=== PATIENT | female | born 1965 | race Caucasian/White ===

== ENCOUNTER 2017-01-06 08:33 | Inpatient (IN) | payer BC ==
[2016-12-08 09:51] VITALS: BMI 34.0
--- NOTE | 2016-12-08 10:21 | PAT Medication Instructions ---
Service Date Dec 08, 2016. Current Home Medication List Acetaminophen (Tylenol), 1 TAB PO Q4 PRN for Pain Calcium-Magnesium W/ Vitamin D (Citracal Calcium+D Slow R), 1 TAB PO BID Cholecalciferol (Vitamin D3), 2,000 INTER.UNIT PO QAM Cyanocobalamin (Vitamin B-12 Inj), 1 in EVERY THREE WEEKS Docusate Sodium (Docusate Sodium), 1 MG PO DAILY PRN for Constipation Duloxetine HCl (Cymbalta), 1 CAP PO QAM Ferrous Sulfate (Iron), 1 TAB PO BID Multivitamin (Multivitamin), 1 TAB PO Omeprazole (Prilosec), 20 MG PO QAM Senna (Senna Lax), Unknown Dose PO BID Thiamine Hcl (Vitamin B-1), 100 MG PO QAM Medication Instructions For Your Scheduled Surgery - Continue as directed: Cyanocobalamin (Vitamin B-12 Inj), 1 in EVERY THREE WEEKS - Hold the following medications the morning of surgery: Thiamine Hcl (Vitamin B-1), 100 MG PO QAM Cholecalciferol (Vitamin D3), 2,000 INTER.UNIT PO QAM Calcium-Magnesium W/ Vitamin D (Citracal Calcium+D Slow R), 1 TAB PO BID Senna (Senna Lax), Unknown Dose PO BID Ferrous Sulfate (Iron), 1 TAB PO BID Multivitamin (Multivitamin), 1 TAB PO Docusate Sodium (Docusate Sodium), 1 MG PO DAILY PRN for Constipation - Take the following medications the morning of surgery with a sip of water OTHERWISE NOTHING TO EAT OR DRINK AFTER MIDNIGHT: Duloxetine HCl (Cymbalta), 1 CAP PO QAM Omeprazole (Prilosec), 20 MG PO QAM Acetaminophen (Tylenol), 1 TAB PO Q4 PRN for Pain (may take up to 4 hours prior to surgery if needed) - Take the following medications as scheduled the night before surgery: Calcium-Magnesium W/ Vitamin D (Citracal Calcium+D Slow R), 1 TAB PO BID Senna (Senna Lax), Unknown Dose PO BID Ferrous Sulfate (Iron), 1 TAB PO BID Acetaminophen (Tylenol), 1 TAB PO Q4 PRN for Pain Docusate Sodium (Docusate Sodium), 1 MG PO DAILY PRN for Constipation If you have any questions please call us at [phone] (Peyton Unger PA-C) or [phone] or [phone]
--- NOTE | 2016-12-08 10:59 | DIAGNOSTIC IMAGING REPORT ---
TWO VIEW CHEST CLINICAL HISTORY: Preoperative examination. FINDINGS: PA and lateral chest radiographs are obtained. No prior studies are available for comparison at the time of dictation. The cardiomediastinal silhouette is unremarkable. The lungs and pleural spaces are clear. There is no pneumothorax. The bony thorax appears intact. Degenerative change and scoliosis are noted in the thoracic spine. IMPRESSION: No active disease in the chest. Electronically signed by: Holden Francisco M.D. 12/08/2016 10:57 AM Dictated Date/Time: 12/08/2016 10:57 AM
[2016-12-08 11:58] LABS: BASO % 0.3 %; BASO ABS # 0.02 K/uL (0-0.2); COMPLETE YES; EOS % 0.5 %; HEMATOCRIT 39.4 % (37-47); IG% 0.3 %; LYMPH % 22.3 %; LYMPH ABS # 1.69 K/uL (1.2-3.4); MEAN CELL VOLUME 89.7 fL (80-100); MEAN CORPUSCULAR HEMOGLOBIN 30.3 pg (25-34); MEAN CORPUSCULAR HGB CONC 33.8 g/dl (32-36); MONO % 3.4 %; NEUT % 73.2 %; PLATELET COUNT 188 K/uL (130-400); RED BLOOD COUNT 4.39 M/uL (4.2-5.4); WHITE BLOOD COUNT 7.59 K/uL (4.8-10.8)
[2016-12-08 12:09] LABS: PROTHROMBIN TIME (PATIENT) 10.4 SECONDS (9.0-12.0)
[2016-12-08 12:29] LABS: BUN/CREATININE RATIO 50.6 (10-20); CALCIUM 8.7 mg/dl (8.5-10.1); CREATININE 0.44 mg/dl (0.60-1.20); POTASSIUM 3.9 mmol/L (3.5-5.1)
[2016-12-08 12:39] LABS: URINE APPEARANCE CLEAR (CLEAR); URINE BILIRUBIN NEG (NEG); URINE COLOR YELLOW; URINE NITRITE NEG (NEG); URINE SPECIFIC GRAVITY 1.022 (1.000-1.030); UROBILINOGEN NEG (NEG); ZZUR CULT IF INDIC CLEAN CATCH NO
[2016-12-08 12:53] LABS: MANUAL MICROSCOPIC REQUIRED? NO; REVIEW REQ? NO
[2016-12-08 13:08] LABS: ESTIMATED AVERAGE GLUCOSE 105 mg/dl; HA1C FLAG Normal (Normal)
--- NOTE | 2017-01-05 09:01 | HISTORY & PHYSICAL EXAMINATION ---
DATE OF ADMISSION: 01/06/2017 CHIEF COMPLAINT: Left hip pain. HISTORY OF PRESENT ILLNESS: Yasmine is a 51-year-old female with a multiple-year history of pain in her left hip. The patient rates her pain a 10/10. She has pain with her daily activities. She has limited standing and walking tolerance. Pain is worse with weightbearing. The patient has had Tylenol, injections and physical therapy in the past without relief. She is unable to take anti-inflammatories due to gastric bypass. She has failed conservative treatment and is scheduled for left hip replacement. PAST MEDICAL HISTORY: Benign. She denies heart disease, diabetes or DVT. PAST SURGICAL HISTORY: Ovarian resection 1982, abdominoplasty in 2011, gastric bypass 2009, vein ligation in 2011. SOCIAL HISTORY: The patient denies alcohol or tobacco use. She lives in a single story home. She is and works at the [employer] in [facility]. FAMILY HISTORY: Negative for DVT. MEDICATIONS: Vitamin B12, slow release iron, B1, D3, multivitamin, Caltrate, Senna-Lax, Tylenol, Prilosec, Pat-D and Cymbalta. ALLERGIES: None. REVIEW OF SYSTEMS: See HPI. Ten other systems reviewed, all negative. PHYSICAL EXAMINATION: VITAL SIGNS: Height 5 foot 2 inches, weight 186 pounds, BMI is 34. GENERAL: This is a well-developed, well-nourished female who is alert and oriented x3. Mood and affect are appropriate. HEENT: Normocephalic, atraumatic. Mucous membranes are moist and intact. NECK: Supple without lymphadenopathy. HEART: Regular rate and rhythm without murmurs, rubs or gallops. LUNGS: Clear to auscultation without wheezes or rhonchi. ABDOMEN: Soft and nontender. Bowel sounds are equal and active. EXTREMITIES: No ecchymosis, redness or warmth. Thigh and calf are soft and nontender. Log roll of the hip reproduces pain in the groin. Range of motion is decreased. She is neurovascularly intact with +5/5 strength. She walks with an antalgic gait. X-RAY EXAMINATION: AP and lateral views show joint space narrowing and osteophyte formation. She has cystic formation in the left acetabulum. IMPRESSION: Degenerative joint disease, left hip. PLAN: The patient will be admitted for a left total hip arthroplasty. We will plan on aspirin for DVT prophylaxis. The patient's PCP is Dr. Lucio. She will have [facility] for home physical therapy.
[~2017-01-06] VITALS: Ht 157.5 cm; Wt 84.3 kg
[2017-01-06] VITALS (10 sets, daily range): BP systolic 116–146; BP diastolic 72–99; PULSE 69–89; TEMP 36.1–37.2; O2SAT 95–100; Ht 157.5 cm; Wt 84.3 kg
[~2017-01-06 08:33] MED LIST: ACETAMINOPHEN 500 MG TAB PO SCH; BUPIVACAINE 0.5 % 5 MG/1 ML PF 10ML VIAL ONE; CALC1TAB56 PO; CEFAZOLIN 2000 MG/60 ML D5W 60 ML IV SCH; CLC100 PO; CYAN3INJ; CeleBREX 200 MG CAP PO SCH; DULO-24 PO; FAMOTIDINE 20 MG TAB PO SCH; FERR18TA PO; GABAPENTIN 300 MG CAP PO SCH; LACTATED RINGER'S 1000ML 1,000 ML IV SCH; LACTATED RINGER'S 1000ML 500 ML IV ONE; LACTATED RINGER'S 1000ML IV SCH; METOCLOPRAMIDE HCL 10 MG TAB PO SCH; MULT-506 PO; OXYCODONE HCL 10 MG TABCR (OXYCONTIN) PO SCH; POLYMYXIN B SULFATE 100,000 UNITS in NSS 100ML IR SCH; PRLSR20 PO; ROPIVACAINE 5MG/ML 30 ML 150 MG, BUPIVACAINE/EPINEPHR 0.5% MPF 30 ML, KETOROLAC TROMETH... INFIL SCH; SNK PO; THIA100T13 PO; TYL325X PO; VANCOMYCIN INJ 400 MG in NSS 100ML IR SCH; VTMD1000 PO
[2017-01-06] MEDS ORDERED: MIDAZOLAM HCL 1 MG/ML 2ML VIAL ONE (10:46)
--- NOTE | 2017-01-06 10:54 | History & Physical Bridge Note ---
H&P Re-Evaluation Bridge Note: I have examined the patient, reviewed the History & Physical and in the interval since the performance of the History & Physical I have noted the following changes of clinical significance: No changes noted
[2017-01-06] MEDS ORDERED: ORTHO JOINT ANESTHETIC ONE (11:13)
[2017-01-06] MEDS ORDERED: POVIDONE-IODINE OP SOLN 30 ML BTL ONE (11:13)
[2017-01-06] MEDS ORDERED: BACITRACIN 50000 UNIT VIAL ONE (11:13)
[2017-01-06] MEDS ORDERED: FENTANYL CITRATE INJ 50 MCG/1 ML 2 ML VIAL IV PRN (11:15)
[2017-01-06] MEDS ORDERED: HYDROmorphone INJ 1 MG/ML SYR IV PRN (11:15)
[2017-01-06] MEDS ORDERED: ONDANSETRON INJ 2 MG/ML 2 ML VIAL IV PRN ×2 (11:15→13:15)
[2017-01-06] MEDS ORDERED: ATROPINE SULFATE 0.1 MG/ML 5ML SYR IV PRN (11:15)
[2017-01-06] MEDS ORDERED: MEPERIDINE HCL 25 MG/ML CARP IV PRN (11:15)
[2017-01-06] MEDS ORDERED: LABETALOL HCL IV 5 MG/ML 20ML IV PRN (11:15)
[2017-01-06] MEDS ORDERED: EpHEDrine SULFATE INJ 50 MG/ML AMP IV PRN (11:15)
[2017-01-06] MEDS ORDERED: FENTANYL CITRATE INJ 50 MCG/1 ML 2 ML VIAL ONE (11:52)
[2017-01-06] MEDS ORDERED: PHENYLEPHRINE 100MCG/ML 5ML SYR ONE (12:04)
[2017-01-06] MEDS ORDERED: ROCURONIUM BROMIDE 10 MG/ML 5 ML VIAL ONE (12:04)
[2017-01-06] MEDS ORDERED: EpHEDrine SULFATE 50MG/5ML SYR ONE (12:04)
[2017-01-06] MEDS ORDERED: PROPOFOL IV EMULSION 10 MG/ML 20 ML VIAL IV ONE (12:04)
[2017-01-06] MEDS ORDERED: ONDANSETRON INJ 2 MG/ML 2 ML VIAL ONE (12:04)
[2017-01-06] MEDS ORDERED: DEXAMETHASONE SOD INJ 4 MG/ML VIAL ONE (12:05)
[2017-01-06] MEDS ORDERED: EpHEDrine SULFATE INJ 50 MG/ML AMP ONE (12:11)
--- NOTE | 2017-01-06 13:10 | DIAGNOSTIC IMAGING REPORT ---
INTRAOPERATIVE RADIOGRAPH CLINICAL HISTORY: Left hip arthroplasty. Fluoroscopy time: 11 seconds. FINDINGS: A single spot fluoroscopic view of the left hip from an arthroplasty procedure is presented. A left hip arthroplasty is in near-anatomic alignment. There is no evidence of acute fracture on this single fluoroscopic view. IMPRESSION: Intraoperative image from a left hip further plasty procedure as above. Electronically signed by: Holden Francisco M.D. 01/06/2017 1:09 PM Dictated Date/Time: 01/06/2017 1:08 PM
--- NOTE | 2017-01-06 13:11 | [facility] Post Operative Brief Note ---
Immediate Operative Summary Operative Date Jan 06, 2017. Pre-Operative Diagnosis Degenerative Joint Disease Left Hip Post-Operative Diagnosis Degenerative Joint Disease Left Hip Procedure(s) Performed Left Total Hip Arthroplasty, Direct Anterior Approach--Uncemented Surgeon Dr. Brian Goncalves Echocardiograph Technician Surgeon(s) PAUL Potter Estimated Blood Loss 200ML Findings djd poor tissue quality Specimens A. Left Femoral Head Complication(s) None Disposition Recovery Room / PACU
[2017-01-06] MEDS ORDERED: SOD PHOSPHATE/SOD BIPHOSPHATE ENEMA 132 ML BTL PR PRN (13:15)
[2017-01-06] MEDS ORDERED: METOCLOPRAMIDE HCL INJ 5 MG/ML 2 ML VIAL IV PRN (13:15)
[2017-01-06] MEDS ORDERED: MoRPHine SULFATE 2 MG/ML CARP IV PRN (13:15)
[2017-01-06] MEDS ORDERED: ZOLPIDEM TARTRATE 5 MG TAB PO PRN (13:15)
[2017-01-06] MEDS ORDERED: ALUMINUM/MAGNESIUM/SIMETH (MAALOX MAX) 30 ML UDC PO PRN (13:15)
[2017-01-06] MEDS ORDERED: TRAMADOL HCL 50 MG TAB PO PRN (13:15)
[2017-01-06] MEDS ORDERED: MAGNESIUM HYDROXIDE SUSP 30 ML UDC PO PRN (13:15)
[2017-01-06] MEDS ORDERED: BISACODYL 10 MG SUPP PR PRN (13:15)
[2017-01-06] MEDS ORDERED: DiphenhydrAMINE HCL 50 MG/ML VIAL IV PRN (13:15)
--- NOTE | 2017-01-06 14:26 | DIAGNOSTIC IMAGING REPORT ---
AP PELVIS, CROSSTABLE LATERAL LEFT HIP History: Left total hip arthroplasty. Degenerative arthritis. Postop. FINDINGS: The patient is status post a left total hip arthroplasty. The hardware is intact. No fracture or dislocation. Surgical drains are in place. IMPRESSION: Left total hip arthroplasty. No evidence for hardware complication. Electronically signed by: Sal Chaparro M.D. 01/06/2017 2:24 PM Dictated Date/Time: 01/06/2017 2:24 PM
--- NOTE | 2017-01-06 14:55 | Anesthesiology Progress Note ---
Anesthesia Post Op Note Date & Time Jan 06, 2017 at 14:54 Vital Signs Pain Intensity: 0 Vital Signs Past 12 Hours Date Time Temp Pulse Resp B/P Pulse Ox O2 Delivery O2 Flow Rate FiO2 01/06/17 14:30 36.9 71 18 134/78 99 Nasal Cannula 2 01/06/17 14:20 77 21 132/73 98 Nasal Cannula 2 01/06/17 14:10 79 20 136/74 98 Nasal Cannula 2 01/06/17 14:00 88 18 146/84 100 Mask 10 01/06/17 13:50 75 16 159/87 100 Mask 10 01/06/17 13:40 36.6 73 20 172/96 100 Mask 10 01/06/17 09:08 36.1 70 20 146/99 96 Room Air Notes Mental Status: alert / awake / arousable, participated in evaluation Pt Amnestic to Procedure: Yes Nausea / Vomiting: adequately controlled Pain: adequately controlled Airway Patency, RR, SpO2: stable & adequate BP & HR: stable & adequate Hydration State: stable & adequate Neuraxial Anesthesia: was administered, sensory block is resolving Anesthetic Complications: no major complications apparent
[2017-01-06] MEDS ORDERED: PNEUMOCOCCAL ADMINISTRATION CHARGE ONE (16:15)
[2017-01-06] MEDS ORDERED: PNEUMOCOCCAL POLYSACCHARIDES 25 MCG/0.5 ML VIAL/SYR IM. ONE (16:15)
[2017-01-06] MEDS: D5W AND 1/2NSS + 20MEQ KCL 1,000 ML IV SCH (16:26)
--- NOTE | 2017-01-06 16:27 | OPERATIVE REPORT ---
DATE OF OPERATION: 01/06/2017 PREOPERATIVE DIAGNOSIS: Degenerative arthritis, left hip. POSTOPERATIVE DIAGNOSIS: Same. PROCEDURE: Left total hip replacement. SURGEON: Dr. Goncalves. WASHROOM ATTENDANT: PAUL Potter. ANESTHESIA: Spinal. BLOOD LOSS: 200 mL. REPLACEMENT FLUIDS: 1700 mL crystalloid. DRAINS: Hemovacs x1. CULTURES: None. COMPLICATIONS: None. COMPONENTS USED: [employer] hip system: Acetabulum size 50, femur size 4 high offset, femoral head minus 3 32 mm. NOTE: PAUL Potter was present and assisted throughout due to the complicated nature of this case. He helped with preparation and set up, first assisted throughout and personally closed the fascial, subcutaneous and skin layers and applied the postoperative dressing. DESCRIPTION: Following satisfactory spinal, the patient was supine. The left leg was placed in the traction device, the right leg in the well leg barajas. The left leg was prepared with ChloraPrep and draped sterilely. Following a surgical time-out, an anterior approach was performed. The patient could sense the necessary of skin incision and therefore this case was delayed while general anesthetic was completed. The approach was then completed in the interval between the sartorius and tensor muscles. The patient had had a previous gastric bypass surgery and also a pannus resection, this made scarring in the proximal region present and the interval was difficult to expose. Eventually, the interval was opened, the circumflex femoral vessels were identified and ligated and anterior capsulotomy was performed exposing the arthritic femoral neck and head. There was modest bleeding. The femoral neck and head were trimmed and removed. Acetabular self-retaining retractor was placed. Acetabular reaming was completed under fluoroscopic control and a 50 shell was impacted into an anatomic position and secured with a dome screw. Local anesthetic was placed and after irrigation, the polyethylene liner was placed. Attention was turned to the femur. The femur was prepared after finding the intramedullary canal up to a size 4. A trial reduction with a minus 3 high offset stem showed sabianism of leg lengths using fluoroscopic landmarks and good fit and fill of the proximal canal. The hip was dislocated. The trial component was removed. Local anesthetic was placed and after irrigation, the final implant was placed and the hip was reduced. Fluoroscopy confirmed similar position. A Betadine soak was performed. The muscles were infiltrated with local anesthetic. After 5 minutes, the Betadine was irrigated. The capsule was closed with 1-0 Vicryl interrupted. A drain was then placed. The fascia was closed with a running suture of #1 Vicryl, the subcutaneous tissues with 2-0 Vicryl and the skin with running subcuticular stitch of 3-0 V-Loc. Dermabond and a dry dressing were applied. The patient was returned to her bed in stable condition. I attest to the content of the Intraoperative Record and any orders documented therein. Any exceptio ns are noted below.
[2017-01-06] MEDS: KETOROLAC TROMETHAMINE 30 MG/ML VIAL IV. SCH ×2 (18:32→23:53)
[2017-01-06] MEDS ORDERED: TRANEXAMIC ACID INJ 1,000 MG in SODIUM CHLORIDE 0.9% 100ML 100 ML IV ONE (20:00)
[2017-01-06] MEDS ORDERED: CeleBREX 200 MG CAP PO SCH (21:00)
[2017-01-06] MEDS ORDERED: SENNA 8.6 MG TAB PO SCH (21:00)
[2017-01-06] MEDS: CEFAZOLIN IV 2,000 MG in DEXTROSE 5% 50ML 50 ML IV SCH (21:07)
[2017-01-06] MEDS: ASPIRIN 81 MG ECTAB PO SCH (21:07)
[2017-01-06] MEDS: ACETAMINOPHEN 500 MG TAB PO SCH (21:08)
[2017-01-06] MEDS: TRANEXAMIC ACID INJ 1,000 MG in SODIUM CHLORIDE 0.9% 100ML 100 ML IV SCH ×2 (22:49→23:03)
[2017-01-07] MEDS: D5W AND 1/2NSS + 20MEQ KCL 1,000 ML IV SCH ×2 (01:42→12:00)
[2017-01-07] MEDS: OXYCODONE HCL IR 5 MG TAB (IMMEDIATE RELEASE) PO PRN ×3 (01:45→12:58)
[2017-01-07] MEDS: CEFAZOLIN IV 2,000 MG in DEXTROSE 5% 50ML 50 ML IV SCH (04:00)
[2017-01-07] MEDS: ACETAMINOPHEN 500 MG TAB PO SCH ×2 (04:00→12:57)
[2017-01-07 04:40] VITALS: BP 107/69; PULSE 70; TEMP 36.4; O2SAT 98
[2017-01-07] MEDS: KETOROLAC TROMETHAMINE 30 MG/ML VIAL IV. SCH ×2 (06:01→12:00)
[2017-01-07 06:14] LABS: BASO % 0.1 %; BASO ABS # 0.01 K/uL (0-0.2); EOS % 0.1 %; IG% 0.3 %; LYMPH % 11.2 %; MEAN CELL VOLUME 89.4 fL (80-100); MEAN CORPUSCULAR HEMOGLOBIN 29.5 pg (25-34); MEAN PLATELET VOLUME 10.6 fL (7.4-10.4); MONO % 6.6 %; NEUT % 81.7 %; PLATELET COUNT 194 K/uL (130-400); RED BLOOD COUNT 3.02 M/uL (4.2-5.4)
[2017-01-07 06:43] LABS: COMPLETE YES
[2017-01-07 06:52] LABS: BUN/CREATININE RATIO 21.3 (10-20); CALCIUM 8.2 mg/dl (8.5-10.1); CREATININE 0.59 mg/dl (0.60-1.20); POTASSIUM 4.5 mmol/L (3.5-5.1)
[2017-01-07 07:59] VITALS: BP 133/84; PULSE 67; TEMP 36.4; O2SAT 97
[2017-01-07] MEDS ORDERED: RXC5 PO (08:12)
[2017-01-07] MEDS ORDERED: ASPEC81 PO (08:12)
[2017-01-07] MEDS ORDERED: ACET-1138 PO (08:12)
[2017-01-07] MEDS ORDERED: CLB200 PO (08:12)
[2017-01-07] MEDS ORDERED: SNK PO (08:12)
--- NOTE | 2017-01-07 08:16 | Orthopedic Progress Note ---
Orthopedic Progress Note Date of Service Jan 07, 2017. Subjective Post OP Day: 1 Reports: feeling well, Denies: SOB, complaints, light headedness, pain controlled w PO medications Objective calves soft nontender, N/V intact, hip located, dressing C/D/I, A&O x3, toes mobile, hemovac drainage (60 LAST SHIFT ) Date Time Temp Pulse Resp B/P Pulse Ox O2 Delivery O2 Flow Rate FiO2 01/07/17 07:59 36.4 67 16 133/84 97 Room Air 01/07/17 04:40 36.4 70 16 107/69 98 Room Air 01/06/17 23:30 Room Air 01/06/17 22:55 36.4 84 16 116/72 96 Room Air 01/06/17 19:49 133/78 01/06/17 19:19 36.7 79 18 120/87 97 Room Air 01/06/17 17:45 37.2 89 17 135/83 96 Room Air 01/06/17 16:45 36.4 81 18 127/89 95 Room Air 01/06/17 15:48 36.4 69 18 123/80 95 Room Air 01/06/17 15:19 36.4 76 16 129/83 100 Nasal Cannula 2.0 01/06/17 14:50 98 Nasal Cannula 2.0 01/06/17 14:45 98 Nasal Cannula 2.0 01/06/17 14:30 36.9 71 18 134/78 99 Nasal Cannula 2 01/06/17 14:20 77 21 132/73 98 Nasal Cannula 2 01/06/17 14:10 79 20 136/74 98 Nasal Cannula 2 01/06/17 14:00 88 18 146/84 100 Mask 10 01/06/17 13:50 75 16 159/87 100 Mask 10 01/06/17 13:40 36.6 73 20 172/96 100 Mask 10 01/06/17 09:08 36.1 70 20 146/99 96 Room Air Laboratory Results 24 Hours: Test 01/07/17 05:46 White Blood Count 11.60 K/uL Red Blood Count 3.02 M/uL Hemoglobin 8.9 g/dL Hematocrit 27.0 % Mean Corpuscular Volume 89.4 fL Mean Corpuscular Hemoglobin 29.5 pg Mean Corpuscular Hemoglobin Concent 33.0 g/dl Platelet Count 194 K/uL Mean Platelet Volume 10.6 fL Neutrophils (%) (Auto) 81.7 % Lymphocytes (%) (Auto) 11.2 % Monocytes (%) (Auto) 6.6 % Eosinophils (%) (Auto) 0.1 % Basophils (%) (Auto) 0.1 % Neutrophils # (Auto) 9.49 K/uL Lymphocytes # (Auto) 1.30 K/uL Monocytes # (Auto) 0.76 K/uL Eosinophils # (Auto) 0.01 K/uL Basophils # (Auto) 0.01 K/uL Assessment & Plan Assessment: POD 1 PAPO ANEMIA CHRONIC WITH ACUTE DUE TO SURGERY HX GASTRIC BYPASS Plan: HOME TODAY W [facility] HH ANEMIA COMPENSATED Inhouse Planning Pain Management: PO Tylenol, Oxy IR DVT Prophylaxis: TEDs, SCDs, ASA Discharge Planning Discharge Planning: home with home health Pain Management: PO Tylenol, Oxy IR DVT Prophylaxis: TEDs, ASA Therapy: Physical Therapy, Occupational Therapy
--- NOTE | 2017-01-07 08:20 | Discharge Instructions ---
Discharge Instructions Admission Reason for Admission: Left Hip Degenerative Arthritis Discharge Discharge Diagnosis / Problem: Left Hip Djd Discharge Goals Goal(s): Decrease discomfort, Improve function Activity Recommendations Activity Limitations: per Instructions/Follow-up section Weightbearing Status: Left weightbearing (as tolerated) . Instructions / Follow-Up Instructions / Follow-Up ACTIVITY RECOMMENDATIONS: SELF CARE INSTRUCTIONS AFTER TOTAL HIP REPLACEMENT : Direct Anterior Approach Until the incision and soft tissues around your hip have healed, there is a possibility that the hip prosthesis could dislocate. A. Hip flexion ( Up & Down out of chair or steps ) may be difficult. This is normal. B. Numbness in front of the thigh is also normal for a few weeks. C. Use hand rails when walking on stairs. D. Wear low heeled shoes with non-slip soles. E. Be sure that your floors are free of things that could trip you - throw rugs , electrical cords, small objects. Avoid wet and waxed floors, especially with crutches and canes. F. Try to walk several times a day with rest periods between. G. Continue with all the exercises taught to you in the hospital. Again, make walking a part of your daily routine. SPECIAL CARE INSTRUCTIONS: VERY IMPORTANT TO READ AND REVIEW A. You may still be at risk for phlebitis and blood clots. 1. Wear surgical stockings (ESTHER hose) for 2 weeks after surgery to improve circulation and reduce swelling. 2. Take Aspirin 81mg twice daily for 4 weeks or as directed by your doctor. This is your blood thinner. 3. High risk patients may be prescribed a stronger blood thinner if necessary. 4. If you are on Coumadin normally, your family doctor/vault custodian should monitor your blood work. Expect a phone call the day of or the day after bloodwork is drawn to adjust your dosage. B. You must take antibiotics before having dental work, bladder, bowel and other surgery. Your doctor will provide you with a permanent card to carry describing precautions. C. Call [facility] if you have a fever, redness or swelling around the incision, cloudy drainage from incision, or sudden increase in pain in your hip, not relieved by your regular pain medication. D. Please call the office at if you have any concerns or questions about your operation or recovery. * YOU MAY SHOWER, NO TUB BATHS UNTIL CLEARED BY YOUR DOCTOR. - Keep an extra close eye on the top portion of your incision. Be sure to keep clean & dry. * WEAR ESTHER HOSE 20 HOURS PER DAY FOR 2 WEEKS. * YOU MAY PROGRESS FROM A WALKER, TO A CANE, TO INDEPENDENT AT YOUR OWN PACE. * MOST PATIENTS WILL HAVE HOME NURSING FOR THERAPY. IF YOU DECIDE TO DO OUTPATIENT PHYSICAL THERAPY, PLEASE SCHEDULE THIS 3 TIMES PER WEEK. * NOTE: AQUACEL SILVER ION DRESSING IS UNDER 4X4 GAUZE DRESSING. PLEASE LET THE CURRENT DRESSING REMAIN ON FOR 7 DAYS. THEN BEGIN THE DERMABOND/PRINEO DRESSING INSTRUCTIONS THEREAFTER. CALL THE OFFICE WITH ANY QUESTIONS OR PROBLEMS WITH THE CURRENT DRESSING. DERMABOND Prineo- This is a mesh tape dressing that is covered with glue. It should remain in place until the incision is properly healed, usually 10-14 days. This dressing is designed to naturally slough off. You may trim the excess mesh tape as it peels off. Incision may be briefly wet in a shower. Dry immediately by blotting with a clean, dry towel. Do not bath or swim until instructed by your doctor. Do not scratch, rub, or pick at the dressing. Do not apply any topical ointments or lotions until dressing is completely removed and/or instructed by your doctor. There may be a small piece of suture material at one end of your incision. Do not pull or trim this. If it is bothersome or catching on clothing, you may cover it with a band-aid. FOLLOW UP VISIT: If appointment is not already scheduled: Please call [facility] to make a follow-up appointment for 2 weeks after your surgery at . Current Hospital Diet Patient's current hospital diet: Regular Diet Discharge Diet Recommended Diet: Regular Diet Procedures Procedures Performed: Left Total Hip Arthroplasty, Direct Anterior Approach--Uncemented Pending Studies Studies pending at discharge: no Laboratory Results Hemoglobin A1c Test 12/08/16 10:26 Range/Units Estimated Average Glucose 105 mg/dl Hemoglobin A1c 5.3 4.5-5.6 % Medical Emergencies . Who to Call and When: Medical Emergencies: If at any time you feel your situation is an emergency, please call 911 immediately. . Non-Emergent Contact Non-Emergency issues call your: Surgeon Call Non-Emergent contact if: temperature is above 101.5, your pain is not controlled, your pain is worsening, wound has increased drainage, wound has increased redness . "Provider Documentation" section prepared by David Pereira. VTE Core Measure Inpt VTE Proph given/why not?: Other Anticoagulation, T.E.D. Stockings, SCD's [place] Drug Monitoring Program Search Results: patient reviewed within database, no issues identified
[2017-01-07] MEDS ORDERED: ONDA8TAB6 PO (08:23)
[2017-01-07] MEDS: ASPIRIN 81 MG ECTAB PO SCH (08:39)
[2017-01-07] MEDS ORDERED: PANTOprazole SOD 40 MG TAB PO SCH (09:00)
[2017-01-07] MEDS ORDERED: DULOXETINE HCL 20 MG CAP PO SCH (09:00)
[2017-01-07] MEDS ORDERED: THIAMINE HCL 100 MG TAB PO SCH (09:00)
[2017-01-07] MEDS ORDERED: CHOLECALCIFEROL 1000 INTER.UNIT TAB PO SCH (09:00)
[2017-01-07] MEDS ORDERED: MULTIVITAMIN TAB PO SCH (09:00)
[2017-01-07 11:50] VITALS: BP 114/71
[2017-01-07 12:37] VITALS: BP 114/71; PULSE 67; TEMP 36.4; O2SAT 97
--- NOTE | 2017-01-11 14:28 | DISCHARGE SUMMARY ---
DISCHARGE DIAGNOSIS: Degenerative joint disease, left hip. CONSULTS: None. COMPLICATIONS: None. PROCEDURES: Left total hip arthroplasty, direct anterior approach by Dr. Brian Goncalves on 01/06/2017. BRIEF HISTORY: As dictated in the history and physical. HOSPITAL SUMMARY: The patient was admitted on the above-noted date and had the above-noted surgery performed which she tolerated well. On the first postoperative day, patient was feeling well and had no complaints. Calves were soft, nontender. Neurovascularly intact. Hip was located. Dressings clean, dry and intact. Toes were mobile. Vital signs were stable and she was afebrile. Hemoglobin was 8.9 and she was started on physical therapy protocol and continued on DVT prophylaxis and pain management. She was progressing well with her physical therapy, ambulating 325 feet and was remaining stable and it was felt that she could be discharged to home on 01/07/2017. For further review, please see chart. LAB AND X-RAY DATA: As per chart. DISCHARGE INSTRUCTIONS: The patient was discharged to home in satisfactory condition on 01/07/2017. DIET: Regular. ACTIVITY: Weightbearing as tolerated left lower extremity. Follow PAPO instruction sheets for direct anterior approach and special care instructions as written. Follow up with Dr. Goncalves in 2 weeks. The patient to call for appointment if one has not been made for her. DISCHARGE MEDICATIONS: Acetaminophen 1000 mg p.o. q. 8 hours, aspirin 81 mg p.o. b.i.d., Celebrex 200 mg p.o. b.i.d., Zofran 8 mg p.o. t.i.d. p.r.n., oxycodone 5-10 mg p.o. q. 4 hours p.r.n., senna 17.2 mg p.o. at bedtime. Resume taking calcium 1 tab p.o. b.i.d., vitamin D3 2000 international units p.o. q.a.m., vitamin B12 injection every 3 weeks, Colace 1 mg p.o. daily, Cymbalta 20 mg 1 cap p.o. q.a.m., ferrous sulfate 1 tab p.o. b.i.d., multivitamin 1 tab p.o. daily, omeprazole 20 mg p.o. q.a.m. and vitamin B1 100 mg p.o. q.a.mAdam
== END 2017-01-07 13:15 | disposition home health service (06) | DRG 470 ==
LOC: ENRESERV → ENRESERVDT → ENRESERVTM → C.ACU 08:33 → C.3E 08:41
PROVIDERS: ADMIT Orthopaedic Surgery; ATTEND Orthopaedic Surgery
PROC: 0SRB01A Replacement of Left Hip Joint with Metal Synthetic Substitute, Uncemented, Open Approach (ICD-10-PCS; principal; 2017-01-06 10:50)
DX: M16.12 Unilateral primary osteoarthritis, left hip (principal); D62 Acute posthemorrhagic anemia; Z98.84 Bariatric surgery status

== ENCOUNTER 2018-02-07 04:55 | Inpatient (IN) | payer BC ==
[2018-01-19 13:29] VITALS: BMI 35.0
--- NOTE | 2018-01-19 14:05 | PAT Medication Instructions ---
Service Date Jan 19, 2018. Current Home Medication List Acetaminophen (Tylenol), 1,000 MG PO PRN Calcium-Magnesium W/ Vitamin D (Citracal Calcium+D Slow R), 1 TAB PO BID Cholecalciferol (Vitamin D3), 5,000 INTER.UNIT PO QAM Duloxetine HCl (Cymbalta), 60 MG PO QAM Ferrous Sulfate (Iron), 1 TAB PO BID Losartan Potassium (Cozaar), 1 TAB PO QAM Multivitamin (Multivitamin), 1 TAB PO QAM Omeprazole (Prilosec), 20 MG PO HS PRN for PRN Senna/Docusate Sod (Senokot S), 2 TAB PO BID [Vitamin B12], 1 DOSE INJ [id number] Medication Instructions For Your Scheduled Surgery -Continue as directed: [Vitamin B12], 1 DOSE INJ [id number] - Hold the following medications the morning of surgery: Calcium-Magnesium W/ Vitamin D (Citracal Calcium+D Slow R), 1 TAB PO BID Cholecalciferol (Vitamin D3), 5,000 INTER.UNIT PO QAM Ferrous Sulfate (Iron), 1 TAB PO BID Losartan Potassium (Cozaar), 1 TAB PO QAM Multivitamin (Multivitamin), 1 TAB PO QAM Senna/Docusate Sod (Senokot S), 2 TAB PO BID - Take the following medications the morning of surgery with a sip of water: Acetaminophen (Tylenol), 1,000 MG PO PRN (if needed, can be taken up to four hours before surgery) Duloxetine HCl (Cymbalta), 60 MG PO QAM Omeprazole (Prilosec), 20 MG PO HS PRN for PRN (if needed) - Take the following medications as scheduled the night before surgery: Acetaminophen (Tylenol), 1,000 MG PO PRN (if needed) Ferrous Sulfate (Iron), 1 TAB PO BID Omeprazole (Prilosec), 20 MG PO HS PRN for PRN (if needed) Senna/Docusate Sod (Senokot S), 2 TAB PO BID If you have any questions please call us at [phone] or [phone] or [phone]
--- NOTE | 2018-01-19 14:38 | DIAGNOSTIC IMAGING REPORT ---
CHEST 2 VIEWS ROUTINE CLINICAL HISTORY: 52 years-old Female presenting with preoperative assessment. TECHNIQUE: PA and lateral views of the chest were obtained. COMPARISON: 12/08/2016. FINDINGS: Cardiomediastinal silhouette normal. Lungs and pleural spaces clear. Degenerative changes of the thoracic spine. Upper abdomen normal. IMPRESSION: 1. No acute cardiopulmonary disease. Electronically signed by: Huey Yeboah M.D. 01/19/2018 2:37 PM Dictated Date/Time: 01/19/2018 2:37 PM
[2018-01-19 15:35] LABS: BASO % 0.2 %; BASO ABS # 0.01 K/uL (0-0.2); EOS % 1.1 %; EOS ABS # 0.07 K/uL (0-0.5); HEMATOCRIT 40.7 % (37-47); HEMOGLOBIN 13.5 g/dL (12.0-16.0); IG# 0.01 K/uL (0.00-0.02); LYMPH % 28.4 %; LYMPH ABS # 1.88 K/uL (1.2-3.4); MEAN CELL VOLUME 92.9 fL (80-100); MEAN CORPUSCULAR HEMOGLOBIN 30.8 pg (25-34); MEAN CORPUSCULAR HGB CONC 33.2 g/dl (32-36); MEAN PLATELET VOLUME 10.6 fL (7.4-10.4); MONO ABS # 0.53 K/uL (0.11-0.59); NEUT % 62.1 %; NEUT ABS # 4.13 K/uL (1.4-6.5); PLATELET COUNT 199 K/uL (130-400); RED CELL DISTRIBUTION WIDTH CV 13.5 % (11.5-14.5); RED CELL DISTRIBUTION WIDTH SD 45.9 fL (36.4-46.3); WHITE BLOOD COUNT 6.63 K/uL (4.8-10.8)
[2018-01-19 15:42] LABS: ALBUMIN 3.6 gm/dl (3.4-5.0); CALCIUM 8.7 mg/dl (8.5-10.1); CREATININE 0.52 mg/dl (0.60-1.20); POTASSIUM 3.8 mmol/L (3.5-5.1)
[2018-01-19 15:47] LABS: INR 0.9 (0.9-1.1); PTT PATIENT 25.4 SECONDS (21.0-31.0)
[2018-01-20 06:41] LABS: HEMOGLOBIN A1C 5.5 % (4.5-5.6)
--- NOTE | 2018-01-31 16:46 | HISTORY & PHYSICAL EXAMINATION ---
DATE OF ADMISSION: 02/07/2018 CHIEF COMPLAINT: Right knee pain. HISTORY OF PRESENT ILLNESS: Yasmine is a 52-year-old female with a multiple year history of right knee pain. The patient rates her pain a 10/10. She has pain with her daily activities. She has limited standing and walking tolerance. Pain is worse with weightbearing. The patient has had injections, home exercise program. She takes Tylenol with minimal relief. She has failed conservative treatment and is scheduled for right knee replacement. PAST MEDICAL HISTORY: Obesity and hypertension. She denies heart disease, diabetes or DVT. PAST SURGICAL HISTORY: Gastric bypass, tonsillectomy, hip replacement and abdominoplasty. SOCIAL HISTORY: The patient denies alcohol or tobacco use. She lives in a 2-tali home. She lives alone and her boyfriend is planning to stay with her postop. She recently started a new job. FAMILY HISTORY: Negative for DVT. MEDICATIONS: Prilosec 2 capsules daily, cyanocobalamin q. 3 weeks, iron supplement, Caltrate plus D, vitamin D3, Pat-D, senna laxative, Cymbalta and losartan 25 mg. ALLERGIES: None. REVIEW OF SYSTEMS: See HPI. Ten other systems reviewed, all negative. PHYSICAL EXAMINATION: VITAL SIGNS: Height 5 feet 2 inches, weight 192 pounds. GENERAL: This is a well-developed, well-nourished female who is alert and oriented x3. Mood and affect are appropriate. HEENT: Normocephalic, atraumatic. Mucous membranes are moist and intact. NECK: Supple without lymphadenopathy. HEART: Regular rate and rhythm without murmurs, rubs or gallops. LUNGS: Clear to auscultation without wheezes or rhonchi. ABDOMEN: Soft and nontender. Bowel sounds are equal and active. EXTREMITIES: No ecchymosis, redness or warmth. She has varus deformity. Range of motion is from 10-115 degrees. She has moderate effusion, moderate varicosities noted. She is neurovascularly intact with +5/5 strength. X-RAY EXAMINATION: AP and lateral views show joint space narrowing and osteophyte formation. IMPRESSION: Degenerative joint disease, right knee. PLAN: The patient will be admitted for a right total knee arthroplasty. We will plan on aspirin for DVT prophylaxis. The patient states she should tolerate this. She is unable to take NSAIDs otherwise due to her gastric bypass surgery. She will have [facility] for home physical therapy.
[~2018-02-07] VITALS: Ht 157.5 cm; Wt 86.9 kg
[2018-02-07] VITALS (9 sets, daily range): BP systolic 124–149; BP diastolic 76–94; PULSE 60–97; TEMP 36.4–37.2; O2SAT 95–99; Ht 157.5 cm; Wt 86.9 kg
[~2018-02-07 04:55] MED LIST changes: +ACET-1256 PO; -ACETAMINOPHEN 500 MG TAB PO SCH; -BUPIVACAINE 0.5 % 5 MG/1 ML PF 10ML VIAL ONE; -CEFAZOLIN 2000 MG/60 ML D5W 60 ML IV SCH; -CLC100 PO; -CYAN3INJ; -CeleBREX 200 MG CAP PO SCH; -FAMOTIDINE 20 MG TAB PO SCH; -GABAPENTIN 300 MG CAP PO SCH; -LACTATED RINGER'S 1000ML 1,000 ML IV SCH; -LACTATED RINGER'S 1000ML 500 ML IV ONE; -LACTATED RINGER'S 1000ML IV SCH; +LOSA1TAB PO; -METOCLOPRAMIDE HCL 10 MG TAB PO SCH; -OXYCODONE HCL 10 MG TABCR (OXYCONTIN) PO SCH; -POLYMYXIN B SULFATE 100,000 UNITS in NSS 100ML IR SCH; -ROPIVACAINE 5MG/ML 30 ML 150 MG, BUPIVACAINE/EPINEPHR 0.5% MPF 30 ML, KETOROLAC TROMETH... INFIL SCH; +SENN-65 PO; -SNK PO; -THIA100T13 PO; -TYL325X PO; -VANCOMYCIN INJ 400 MG in NSS 100ML IR SCH; +VITAMIN B12 INJ
[2018-02-07] MEDS ORDERED: LACTATED RINGER'S 1000ML 500 ML IV SCH (06:00)
[2018-02-07] MEDS ORDERED: METOCLOPRAMIDE HCL 10 MG TAB PO SCH (06:00)
[2018-02-07] MEDS ORDERED: LACTATED RINGER'S 1000ML 1,000 ML IV SCH (06:00)
[2018-02-07] MEDS ORDERED: DEXAMETHASONE 4 MG TAB PO SCH (06:00)
[2018-02-07] MEDS ORDERED: ROPIVACAINE 5MG/ML 30 ML 150 MG, BUPIVACAINE 0.5% MPF INJ 30 ML, EpINEphrine HCL INJ 0.... INFIL SCH ×8 (06:00)
[2018-02-07] MEDS ORDERED: CEFAZOLIN 2000MG IV PUSH 15 ML IV SCH (06:00)
[2018-02-07] MEDS ORDERED: ACETAMINOPHEN 500 MG TAB PO SCH (06:00)
[2018-02-07] MEDS ORDERED: FAMOTIDINE 20 MG TAB PO SCH (06:00)
[2018-02-07] MEDS ORDERED: GABAPENTIN 900 MG PO SCH (06:00)
[2018-02-07] MEDS ORDERED: CeleBREX 200 MG CAP PO SCH (06:00)
[2018-02-07] MEDS: TRANEXAMIC ACID INJ 1,000 MG x 2 Bags IV SCH ×4 (06:30→06:53)
[2018-02-07] MEDS ORDERED: BUPIVACAINE 0.25% 30 ML VIAL ONE (06:30)
[2018-02-07] MEDS ORDERED: BUPIVACAINE 0.5 % 5 MG/1 ML PF 10ML VIAL ONE (06:30)
[2018-02-07] MEDS ORDERED: MIDAZOLAM HCL 1 MG/ML 2ML VIAL ONE (06:40)
[2018-02-07] MEDS ORDERED: ORTHO JOINT ANESTHETIC ONE (06:47)
[2018-02-07] MEDS ORDERED: BACITRACIN 50000 UNIT VIAL ONE (06:48)
[2018-02-07] MEDS ORDERED: POVIDONE-IODINE OP SOLN 30 ML BTL ONE (06:48)
[2018-02-07] MEDS ORDERED: PROPOFOL IV EMULSION 10 MG/ML 20 ML VIAL IV ONE (07:13)
[2018-02-07] MEDS ORDERED: ATROPINE SULFATE 0.1 MG/ML 5ML SYR IV PRN (07:30)
[2018-02-07] MEDS ORDERED: FENTANYL CITRATE INJ 50 MCG/1 ML 2 ML VIAL IV PRN (07:30)
[2018-02-07] MEDS ORDERED: ONDANSETRON INJ 2 MG/ML 2 ML VIAL IV PRN (07:30)
[2018-02-07] MEDS ORDERED: EpHEDrine SULFATE INJ 50 MG/ML AMP IV PRN (07:30)
--- NOTE | 2018-02-07 08:01 | [facility] Operative Report ---
Operative Report Operative Date Feb 07, 2018. Pre-Operative Diagnosis Degenerative joint disease, right knee Post-Operative Diagnosis Degenerative joint disease, right knee Procedure(s) Performed Right Total Knee Arthroplasty Cemented utilizing journey to patient match total knee arthroplasty size 4 femur to tibia 9 Amy [address] Anderson Retail Department Supervisor Surgeon(s) Shawn Wise PA-C Estimated Blood Loss 5cc Findings Patient presents for severe end-stage tricompartmental degenerative joint disease varus alignment subchondral sclerosis cystic changes marginal osteophytes no response to conservative therapy including physical therapy anti- inflammatories relative rest activity modification presents for total knee arthroplasty Specimens As Per Surgeon A. Right Knee Bone and Tissue Anesthesia Type MAC Spinal Regional Complication(s) none Disposition Recovery Room / PACU Indications Patient presents with severe end-stage right hormonal degenerative joint disease subchondral sclerosis marginal cysts osteophytes varus alignment no response to conservative therapy Description of Procedure After proper prepping and draping of the Right lower extremity anterior midline incision was made over the region of the extensor extensor mechanism after meticulous hemostasis was obtained and maintained in subcutaneous tissues a medial parapatellar incision was made The patella was subluxed lateralward the medial lateral gutter were cleaned from any hypertrophic synovitis and scar tissue of the distal femoral block was placed and the distal femoral osteotomy cut was made subsequently the chamfers anterior and posterior osteotomy cuts were made utilizing the 4-in-1 block the tibia was subsequently subluxed anteriorward medial and ateral meniscal remnants were excised in their entirety remnants of the anterior and posterior cruciate ligaments were excised in their entirety excellent exposure of the proximal tibia was obtained the tibial osteotomy guide was placed on the proximal tibial osteotomy cut was made once again the knee was irrigated with copious amounts of sterile saline solution the patella was subsequently everted lateralward thickened scar tissue around the patella was removed the patella was subsequently cut utilizing a freehand technique and was drilled prepared for final preparation and placement of patella socially flexion-extension gaps were checked and the equal and symmetric trials were placed to the appropriate femoral and tibial trials with poly-spacer being placed for equal flexion and extension gaps and full range of motion including extension to 0 and flexion to 140 the trial components after having been taken to recovery range of motion was subsequently removed meticulous hemostasis was obtained and maintained subsequently a knee block injection of joint cocktail including ropivacaine 0.5% 150 mg. Bupivacaine 0.5 % epinephrine 1-200,030 mL's toradol 30 mg dexamethasone 4 mg ketamine 10 mg clonidine 100 micrograms normal saline solution 30 mg was infiltrated into the soft tissues of the posterior knee medial lateral gutters and periosteal synovium special attention was paid to protect neurovascular structures at all times subsequently trial components having been removed the knee was irrigated with sterile saline solution. debris was removed the proximal tibia was subsequently prepared and was made ready for the placement of the tibial component tibial component was also cemented and tamped into position the femoral component was subsequently placed and cemented in the position the patellar component was subsequently cemented in position because hemostasis once again obtained and maintained wound having been thoroughly irrigated with debridement and debridement lavage was performed as well as a medial parapatellar incision closed with #1 Vicryl in interrupted fashion subcutaneous was closed with #2 Vicryl skin was closed with skin clips. PA-C was necessary for prepping and drapping as well as wound closure of deep fascia Sub cutaneous tissue and skin and was necessary for the case. A sterile compressive dressing was placed patient was taken to recovery in stable condition of report dictated by Justin I attest to the content of the Intraoperative Record and any orders documented therein. Any exceptions are noted below. I attest to the content of the Intraoperative Record and any orders documented therein. Any exceptions are noted below.
[2018-02-07] MEDS ORDERED: LIDOCAINE HCL 2% 2 ML VIAL (20MG/ML) ONE (08:16)
[2018-02-07] MEDS ORDERED: ALUMINUM/MAGNESIUM/SIMETH (MAALOX MAX) 30 ML UDC PO PRN (08:45)
[2018-02-07] MEDS ORDERED: ZOLPIDEM TARTRATE 5 MG TAB PO PRN (08:45)
[2018-02-07] MEDS ORDERED: BISACODYL 10 MG SUPP PR PRN (08:45)
[2018-02-07] MEDS ORDERED: SOD PHOSPHATE/SOD BIPHOSPHATE ENEMA 132 ML BTL PR PRN (08:45)
[2018-02-07] MEDS ORDERED: MoRPHine SULFATE 2 MG/ML CARP IV PRN (08:45)
[2018-02-07] MEDS ORDERED: KETOROLAC TROMETHAMINE 30 MG/ML VIAL IV. PRN (08:45)
[2018-02-07] MEDS ORDERED: MAGNESIUM HYDROXIDE SUSP 30 ML UDC PO PRN (08:45)
--- NOTE | 2018-02-07 09:11 | DIAGNOSTIC IMAGING REPORT ---
R KNEE 2 VIEWS ROUTINE CLINICAL HISTORY: Postoperative examination COMPARISON: None. DISCUSSION: There are postsurgical changes of a total right knee arthroplasty and patellar resurfacing. The femoral and tibial components appear well seated. There is an overlying surgical drain. Air in soft tissues is felt to be postsurgical. IMPRESSION: Postsurgical changes of a total right knee arthroplasty Electronically signed by: Gary Yanes M.D. 02/07/2018 9:10 AM Dictated Date/Time: 02/07/2018 9:09 AM
[2018-02-07] MEDS ORDERED: MoRPHine SULFATE 10 MG/ML CARP/VIAL IV PRN (09:30)
[2018-02-07] MEDS ORDERED: MoRPHine SULFATE 4 MG/ML 1 ML CARP\\VIAL IV PRN (09:30)
--- NOTE | 2018-02-07 09:33 | Anesthesiology Progress Note ---
Anesthesia Post Op Note Date & Time Feb 07, 2018 at 09:33 Vital Signs Pain Intensity: 0 Vital Signs Past 12 Hours Date Time Temp Pulse Resp B/P (MAP) Pulse Ox O2 Delivery O2 Flow Rate FiO2 02/07/18 09:20 71 18 130/69 98 Nasal Cannula 3 02/07/18 09:10 36.3 58 18 128/70 99 Nasal Cannula 3 02/07/18 09:00 58 18 129/79 99 Oxymask 3 02/07/18 08:50 61 16 122/75 99 Oxymask 5 02/07/18 08:40 36.2 82 16 127/77 98 Oxymask 5 02/07/18 05:35 36.7 69 18 149/94 99 Room Air Notes Mental Status: alert / awake / arousable, participated in evaluation Pt Amnestic to Procedure: Yes Nausea / Vomiting: adequately controlled Pain: adequately controlled Airway Patency, RR, SpO2: stable & adequate BP & HR: stable & adequate Hydration State: stable & adequate Neuraxial Anesthesia: was administered, sensory block is resolving Anesthetic Complications: no major complications apparent
[2018-02-07] MEDS: D5W AND 1/2NSS + 20MEQ KCL 1,000 ML IV SCH ×2 (10:36→19:34)
[2018-02-07] MEDS: OXYCODONE HCL IR 5 MG TAB (IMMEDIATE RELEASE) PO PRN ×4 (13:45→20:47)
[2018-02-07] MEDS: ACETAMINOPHEN 500 MG TAB PO SCH ×2 (13:45→20:48)
[2018-02-07] MEDS: CEFAZOLIN IV 2,000 MG in SYRINGE 0 ML IV SCH (15:30)
[2018-02-07] MEDS: FERROUS SULFATE 325 MG TAB PO SCH (17:35)
[2018-02-07] MEDS: TRAMADOL HCL 50 MG TAB PO PRN ×2 (17:36→21:39)
[2018-02-07] MEDS: CALCIUM 600MG + VIT D 400 IU TAB PO SCH (20:47)
[2018-02-07] MEDS: DOCUSATE SODIUM 100 MG CAP PO SCH (20:48)
[2018-02-07] MEDS: SENNA 8.6 MG TAB PO SCH (20:48)
[2018-02-07] MEDS: ASPIRIN 81 MG ECTAB PO SCH (20:48)
[2018-02-08] MEDS: OXYCODONE HCL IR 5 MG TAB (IMMEDIATE RELEASE) PO PRN ×3 (00:40→10:12)
[2018-02-08] MEDS: CEFAZOLIN IV 2,000 MG in SYRINGE 0 ML IV SCH (00:40)
[2018-02-08] MEDS: TRAMADOL HCL 50 MG TAB PO PRN ×2 (03:28→19:50)
[2018-02-08 03:35] VITALS: BP 131/78; PULSE 64; TEMP 36.5; O2SAT 97
[2018-02-08] MEDS: ACETAMINOPHEN 500 MG TAB PO SCH ×2 (05:24→13:31)
[2018-02-08] MEDS: D5W AND 1/2NSS + 20MEQ KCL 1,000 ML IV SCH (05:25)
[2018-02-08 06:44] LABS: HEMATOCRIT 32.7 % (37-47); HEMOGLOBIN 10.8 g/dL (12.0-16.0); MEAN CELL VOLUME 92.9 fL (80-100); MEAN CORPUSCULAR HEMOGLOBIN 30.7 pg (25-34); MEAN PLATELET VOLUME 11.1 fL (7.4-10.4); PLATELET COUNT 149 K/uL (130-400); RED CELL DISTRIBUTION WIDTH CV 13.3 % (11.5-14.5); RED CELL DISTRIBUTION WIDTH SD 45.1 fL (36.4-46.3); WHITE BLOOD COUNT 10.29 K/uL (4.8-10.8)
[2018-02-08 07:17] LABS: CALCIUM 8.5 mg/dl (8.5-10.1); CREATININE 0.47 mg/dl (0.60-1.20); POTASSIUM 3.8 mmol/L (3.5-5.1)
--- NOTE | 2018-02-08 07:21 | Clinical Documentation Query ---
FROYLAN Easton : CLINICAL DOCUMENTATION QUERY Patient is a 52 year old female who on 02/07 underwent right TKA. Preoperative H&H was 13.5 g/dl and 40.7%. POD #1, repeat values are 10.8 g/dl and 32.7%. Total blood loss to date is documented to be 405 ml's. She is being monitored with I/O including drain ouputs and serial hematology. Please clarify as clinically appropriate. Thank you. In your clinical opinion is this patient being managed for: ( ) Acute blood loss anemia ( ) Not Agree ( ) Other explanation of clinical findings (Please Explain) ( ) Unable to determine (Please Define) ( ) Need to Discuss The medical record reflects the following clinical findings, treatment, and risk factors. Clinical Indicators: As above Treatment:She is being monitored with I/O including drain ouputs and serial hematology Risk Factors: Acute blood loss associated with right TKA. Please clarify and document your clinical opinion in the progress notes and discharge summary. Terms such as "probable", "suspected", "likely", "questionable", "possible", or "still to be ruled out" are acceptable. IF IN AGREEMENT, YOU MUST DOCUMENT ABOVE DIAGNOSTIC STATEMENT IN DAILY PROGRESS NOTES AND DISCHARGE SUMMARY. This document is not part of the patient's record. Thank You, Vishnu Bach, JANESSA [phone]
[2018-02-08 07:44] VITALS: BP 129/80; PULSE 82; TEMP 36.7; O2SAT 97
[2018-02-08] MEDS: ONDANSETRON INJ 2 MG/ML 2 ML VIAL IV PRN (08:02)
[2018-02-08] MEDS: CALCIUM 600MG + VIT D 400 IU TAB PO SCH ×2 (08:54→21:06)
[2018-02-08] MEDS: CHOLECALCIFEROL 1000 INTER.UNIT TAB PO SCH (08:55)
[2018-02-08] MEDS: DULOXETINE HCL 20 MG CAP PO SCH (08:55)
[2018-02-08] MEDS: DOCUSATE SODIUM 100 MG CAP PO SCH ×2 (08:55→21:05)
[2018-02-08] MEDS: ASPIRIN 81 MG ECTAB PO SCH ×2 (08:55→21:05)
[2018-02-08] MEDS: LOSARTAN POTASSIUM 25 MG TAB PO SCH (08:55)
[2018-02-08] MEDS: FERROUS SULFATE 325 MG TAB PO SCH ×2 (08:55→18:11)
[2018-02-08] MEDS: PANTOprazole SOD 40 MG TAB PO SCH (08:55)
[2018-02-08] MEDS: MULTIVITAMIN TAB PO SCH (08:55)
--- NOTE | 2018-02-08 09:05 | Orthopedic Progress Note ---
Orthopedic Progress Note Date of Service Feb 08, 2018. Subjective Post OP Day: 1 Reports: feeling well, pain controlled w PO medications, Denies: complaints, chest pain, SOB, nausea / vomiting, light headedness, calf pain Objective calves soft nontender, N/V intact, capillary refill less than 2 sec., dressing C /D/I, A&O x3, toes mobile, hemovac drainage (125cc/8 hours) Date Time Temp Pulse Resp B/P (MAP) Pulse Ox O2 Delivery O2 Flow Rate FiO2 02/08/18 07:44 36.7 82 15 129/80 (96) 97 Room Air 02/08/18 03:35 36.5 64 16 131/78 (95) 97 Room Air 02/07/18 22:55 36.7 60 15 124/76 (92) 97 Room Air 02/07/18 19:30 Room Air 02/07/18 19:23 36.5 97 19 138/88 (105) 95 Room Air 02/07/18 15:33 36.7 66 17 144/81 (102) 95 Room Air 02/07/18 12:23 36.6 63 20 127/82 (97) 96 Nasal Cannula 2.0 02/07/18 11:35 36.6 62 17 127/81 (96) 98 Nasal Cannula 2.0 02/07/18 10:39 36.6 75 20 124/80 (95) 98 Nasal Cannula 2.0 02/07/18 10:03 37.2 69 16 125/80 (95) 98 Nasal Cannula 2.0 02/07/18 09:30 98 Nasal Cannula 2.0 02/07/18 09:30 36.4 68 16 129/80 (96) 98 Nasal Cannula 2.0 02/07/18 09:30 98 Nasal Cannula 2.0 02/07/18 09:20 71 18 130/69 98 Nasal Cannula 3 02/07/18 09:10 36.3 58 18 128/70 99 Nasal Cannula 3 Laboratory Results 24 Hours: Test 02/08/18 06:25 Hematocrit 32.7 % Hemoglobin 10.8 g/dL Prothromb Time International Ratio 1.0 Prothrombin Time 10.6 SECONDS Assessment & Plan Assessment: POD #1 s/p right tka pt/ot dvt proph with vazquez/scd/asa plan for dc home with HHPT , likely Monday Discharge Planning Discharge Planning: home with home health DVT Prophylaxis: TEDs, SCDs, ASA
--- NOTE | 2018-02-08 09:06 | Discharge Instructions ---
Discharge Instructions Date of Service Feb 08, 2018. Admission Reason for Admission: History Of Total Knee Arthroplasty Discharge Discharge Diagnosis / Problem: right total knee replacement Discharge Goals Goal(s): Decrease discomfort, Improve function, Increase independence Activity Recommendations Activity Limitations: as noted below Weightbearing Status: Right weightbearing (as tolerated) . Instructions / Follow-Up Instructions / Follow-Up ACTIVITY RECOMMENDATIONS: SELF CARE INSTRUCTIONS AFTER TOTAL KNEE REPLACEMENT A. You may need to continue a physical therapy program after discharge from the hospital. There are several options available to you. Your doctor will assist you in selecting the best one for you. 1. An out-patient facility 2 to 3 times a week for therapy or home therapy. 2. Continue working on all exercises taught to you in the hospital. Your goals should be to increase bending of your knee to 90 degrees and beyond and to fully straighten your knee. B. You may progress at your own pace from walking with a walker or crutches to a cane; then to no assistive devices. C. Make walking a part of your daily routine. Be up as much as comfortable with rest periods throughout the day. Rest with leg elevation is very important. Use the ice wrap frequently for the first 3-4 weeks. D. There are no restrictions on activities. You may ride in a car, shop, participate in liquor runner and all social activities. E. Wear the long elastic stockings (ESTHER hose) 20 hours a day for 2 weeks after surgery. They can be removed several times a day for laundering and for a bath. F. You may shower, no tub baths until cleared by your doctor. SPECIAL CARE INSTRUCTIONS: VERY IMPORTANT TO READ AND REVIEW A. There are a few signs you need to watch for after you are home. Call [facility] if you notice any of the followin. Increased severe knee pain. Some pain is expected especially when you exercise. 2. Increased swelling in your leg or knee; pain or swelling of the calf muscle in either lower leg. 3. Any fluid drainage from the incision. 4. Shortness of breath or chest pain. B. Please call [facility] at if you have any concerns or questions about your operation or recovery. The doctor or his nurse will return your call promptly. C. You must take antibiotics before dental work, bladder, bowel or other surgery. Your doctor will provide you with a permanent care to carry describing this precaution. IMPORTANT: * REMEMBER TO TAKE ASPIRIN, 81 MG, TWICE DAILY FOR 4 WEEKS UNLESS OTHERWISE DIRECTED. THIS IS YOUR BLOOD THINNER. * HIGH RISK PATIENTS MAY BE PRESCRIBED A STRONGER BLOOD THINNER. THIS WILL BE PROVIDED AT DISCHARGE. * CALL IF INCREASED PAIN, REDNESS, DRAINAGE OR FEVER GREATER THAT 101. * WEAR ESTHER HOSE 20 HOURS PER DAY FOR 2 WEEKS. * DERMABOND Prineo- This is a mesh tape dressing that is covered with glue. It should remain in place until the incision is properly healed, usually 10-14 days. This dressing is designed to naturally slough off. You may trim the excess mesh tape as it peels off. Incision may be briefly wet in a shower. Dry immediately by blotting with a clean, dry towel. Do not bath or swim until instructed by your doctor. Do not scratch, rub, or pick at the dressing. Do not apply any topical ointments or lotions until dressing is completely removed and/or instructed by your doctor. There may be a small piece of suture material at one end of your incision. Do not pull or trim this. If it is bothersome or catching on clothing, you may cover it with a band-aid. FOLLOW UP VISIT: If appointment is not already scheduled: Please call [facility] to make a follow-up appointment for 2 weeks after your surgery at . Current Hospital Diet Patient's current hospital diet: Regular Diet Discharge Diet Recommended Diet: Regular Diet Procedures Procedures Performed: Right Total Knee Arthroplasty Cemented utilizing journey to patient match total knee arthroplasty size 4 femur to tibia 9 Amy 29 oval patella Pending Studies Studies pending at discharge: no Laboratory Results Hemoglobin A1c Test 01/19/18 14:19 Range/Units Estimated Average Glucose 111 mg/dl Hemoglobin A1c 5.5 4.5-5.6 % Medical Emergencies . Who to Call and When: Medical Emergencies: If at any time you feel your situation is an emergency, please call 911 immediately. . Non-Emergent Contact Non-Emergency issues call your: Primary Care Provider, Surgeon . "Provider Documentation" section prepared by Shawn Wise. . [place] Drug Monitoring Program Search Results: patient reviewed within database, no issues identified
[2018-02-08 09:56] VITALS: BP 114/73; PULSE 75; O2SAT 97
[2018-02-08] MEDS: HYDROCODONE/ACETAMIN 5/325MG TAB PO PRN ×3 (15:28→22:36)
[2018-02-08 15:41] VITALS: BP 118/77; PULSE 62; TEMP 36.8; O2SAT 98
[2018-02-08] MEDS: MoRPHine SULFATE 2 MG/ML CARP IV PRN ×2 (21:01→21:34)
[2018-02-08] MEDS: SENNA 8.6 MG TAB PO SCH (21:05)
[2018-02-08] MEDS: CeleBREX 200 MG CAP PO SCH (21:06)
[2018-02-08 23:13] VITALS: BP 119/72; PULSE 72; TEMP 36.9; O2SAT 96
[2018-02-09] MEDS: TRAMADOL HCL 50 MG TAB PO PRN ×2 (02:35→06:44)
[2018-02-09] MEDS: HYDROCODONE/ACETAMIN 5/325MG TAB PO PRN (05:14)
[2018-02-09 06:43] VITALS: BP 112/76; PULSE 75; TEMP 36.7; O2SAT 97
[2018-02-09] MEDS: PANTOprazole SOD 40 MG TAB PO SCH (07:50)
[2018-02-09] MEDS: CHOLECALCIFEROL 1000 INTER.UNIT TAB PO SCH (07:50)
[2018-02-09] MEDS: LOSARTAN POTASSIUM 25 MG TAB PO SCH (07:50)
[2018-02-09] MEDS: CALCIUM 600MG + VIT D 400 IU TAB PO SCH (07:50)
[2018-02-09] MEDS: DULOXETINE HCL 20 MG CAP PO SCH (07:50)
[2018-02-09] MEDS: DOCUSATE SODIUM 100 MG CAP PO SCH (07:50)
[2018-02-09] MEDS: FERROUS SULFATE 325 MG TAB PO SCH (07:50)
[2018-02-09] MEDS: ASPIRIN 81 MG ECTAB PO SCH (07:50)
[2018-02-09] MEDS: MULTIVITAMIN TAB PO SCH (07:50)
[2018-02-09] MEDS: CeleBREX 200 MG CAP PO SCH (07:51)
[2018-02-09 07:54] VITALS: BP 112/76; PULSE 75; TEMP 36.7; O2SAT 97
--- NOTE | 2018-02-09 08:25 | Orthopedic Progress Note ---
Orthopedic Progress Note Date of Service Feb 09, 2018. Subjective Post OP Day: 2 Reports: feeling well, Denies: chest pain, SOB, nausea / vomiting, light headedness, calf pain Objective calves soft nontender, N/V intact, capillary refill less than 2 sec., incision C /D/I, A&O x3, toes mobile Date Time Temp Pulse Resp B/P (MAP) Pulse Ox O2 Delivery O2 Flow Rate FiO2 02/09/18 08:02 Room Air 02/09/18 07:54 36.7 75 16 97 Room Air 02/09/18 06:43 36.7 75 16 112/76 (88) 97 Room Air 02/08/18 23:30 Room Air 02/08/18 23:13 36.9 72 16 119/72 (88) 96 Room Air 02/08/18 15:41 36.8 62 17 118/77 (91) 98 Room Air 02/08/18 15:22 Room Air 02/08/18 09:56 75 97 02/08/18 09:00 Room Air Assessment & Plan Assessment: POD #2 s/p right tka pt/ot dvt proph with vazquez/scd/asa plan for dc home with HHPT , likely Monday Plan: PT/OT DVT PROPH- ASA 81MG BID PAIN MANAGEMENT DC HOME TODAY Discharge Planning Discharge Planning: home with home health DVT Prophylaxis: TEDs, SCDs, ASA
[2018-02-09] MEDS ORDERED: HYDR-5688 PO (08:29)
[2018-02-09] MEDS ORDERED: ASPEC81 PO (08:29)
[2018-02-09] MEDS: ONDANSETRON INJ 2 MG/ML 2 ML VIAL IV PRN (09:20)
--- NOTE | 2018-02-09 14:29 | Discharge Summary ---
Orthopedic Discharge Summary Admission Date/Reason Feb 07, 2018 at 05:25 History Of Total Knee Arthroplasty. Discharge Date/Disposition Feb 09, 2018 Home with services Diagnosis Principal Diagnosis: Right Total Knee Arthroplasty Procedure(s) Performed Right Total Knee Arthroplasty Cemented utilizing journey to patient match total knee arthroplasty size 4 femur to tibia 9 Amy 29 oval patella Consultations NONE Medication Reconciliation New Medications: Aspirin (Aspirin EC Low Dose) 81 Mg Ectab 81 MG PO BID for 30 Days, #60 TAB Hydrocodone/Acetaminophen 5MG/325MG ([place] 5MG/325MG) Tab 1-2 TAB PO Q4H PRN for Pain, #60 TAB PRN PAIN Continued Medications: Calcium-Magnesium W/ Vitamin D (Citracal Calcium+D Slow R) 1 Tab Tab 1 TAB PO BID Cholecalciferol (Vitamin D3) 1,000 Inter.unit Tab 5000 INTER.UNIT PO QAM Duloxetine HCl (Cymbalta) 20 Mg Cap 60 MG PO QAM, CAP Ferrous Sulfate (Iron) 90 Mg Tab 1 TAB PO BID Losartan Potassium (Cozaar) 25 Mg Tab 1 TAB PO QAM for 30 Days, #30 TAB 5 Refills Multivitamin (Multivitamin) Tab 1 TAB PO QAM, TAB Omeprazole (Prilosec) 20 Mg Capcr 20 MG PO HS PRN for PRN, CAP Senna/Docusate Sod (Senokot S) 1 Tab Tab 2 TAB PO BID, TAB [Vitamin B12] () 1 DOSE INJ [id number] Discontinued Medications: Acetaminophen (Tylenol) 500 Mg Tab 1000 MG PO PRN, TAB Admission Physical Exam As per Admitting History & Physical. Hospital Course Patient was a same day admission after undergoing a successful right TKA. She tolerated the procedure well. Post-operatively, her activity was progressed and well tolerated. Please refer to daily progress notes and PT notes for complete details. After exam on 02/09/18, patient felt to be stable for discharge home with HHPT. Patient will f/u in the office in 2 weeks for further evaluation including x-rays and incision check, sooner if having any issues or concerns. Below are pertinent labs/studies during their hospital stay: Last Vital Signs Documentation Date Time Temp Pulse Resp B/P (MAP) Pulse Ox O2 Delivery O2 Flow Rate FiO2 02/09/18 08:02 Room Air 02/09/18 07:54 36.7 75 16 97 02/09/18 06:43 112/76 (88) 02/07/18 12:23 2.0 Last Resulted CBC 02/08/18 06:25 Last Resulted BMP 02/08/18 06:25 Discharge Instructions ACTIVITY RECOMMENDATIONS: SELF CARE INSTRUCTIONS AFTER TOTAL KNEE REPLACEMENT A. You may need to continue a physical therapy program after discharge from the hospital. There are several options available to you. Your doctor will assist you in selecting the best one for you. 1. An out-patient facility 2 to 3 times a week for therapy or home therapy. 2. Continue working on all exercises taught to you in the hospital. Your goals should be to increase bending of your knee to 90 degrees and beyond and to fully straighten your knee. B. You may progress at your own pace from walking with a walker or crutches to a cane; then to no assistive devices. C. Make walking a part of your daily routine. Be up as much as comfortable with rest periods throughout the day. Rest with leg elevation is very important. Use the ice wrap frequently for the first 3-4 weeks. D. There are no restrictions on activities. You may ride in a car, shop, participate in delivery helper and all social activities. E. Wear the long elastic stockings (ESTHER hose) 20 hours a day for 2 weeks after surgery. They can be removed several times a day for laundering and for a bath. F. You may shower, no tub baths until cleared by your doctor. SPECIAL CARE INSTRUCTIONS: VERY IMPORTANT TO READ AND REVIEW A. There are a few signs you need to watch for after you are home. Call [facility] if you notice any of the followin. Increased severe knee pain. Some pain is expected especially when you exercise. 2. Increased swelling in your leg or knee; pain or swelling of the calf muscle in either lower leg. 3. Any fluid drainage from the incision. 4. Shortness of breath or chest pain. B. Please call [facility] at if you have any concerns or questions about your operation or recovery. The doctor or his nurse will return your call promptly. C. You must take antibiotics before dental work, bladder, bowel or other surgery. Your doctor will provide you with a permanent care to carry describing this precaution. IMPORTANT: * REMEMBER TO TAKE ASPIRIN, 81 MG, TWICE DAILY FOR 4 WEEKS UNLESS OTHERWISE DIRECTED. THIS IS YOUR BLOOD THINNER. * HIGH RISK PATIENTS MAY BE PRESCRIBED A STRONGER BLOOD THINNER. THIS WILL BE PROVIDED AT DISCHARGE. * CALL IF INCREASED PAIN, REDNESS, DRAINAGE OR FEVER GREATER THAT 101. * WEAR ESTHER HOSE 20 HOURS PER DAY FOR 2 WEEKS. * DERMABOND Prineo- This is a mesh tape dressing that is covered with glue. It should remain in place until the incision is properly healed, usually 10-14 days. This dressing is designed to naturally slough off. You may trim the excess mesh tape as it peels off. Incision may be briefly wet in a shower. Dry immediately by blotting with a clean, dry towel. Do not bath or swim until instructed by your doctor. Do not scratch, rub, or pick at the dressing. Do not apply any topical ointments or lotions until dressing is completely removed and/or instructed by your doctor. There may be a small piece of suture material at one end of your incision. Do not pull or trim this. If it is bothersome or catching on clothing, you may cover it with a band-aid. FOLLOW UP VISIT: If appointment is not already scheduled: Please call [facility] to make a follow-up appointment for 2 weeks after your surgery at .
== END 2018-02-09 10:55 | disposition home health service (06) | DRG 470 ==
LOC: C.ACU 04:55 → C.MSN 05:25 → ENRESERV 09:03
PROVIDERS: ADMIT Orthopaedic Surgery; ATTEND Orthopaedic Surgery
PROC: 0SRC0J9 Replacement of Right Knee Joint with Synthetic Substitute, Cemented, Open Approach (ICD-10-PCS; principal; 2018-02-07 07:00)
DX: M17.11 Unilateral primary osteoarthritis, right knee (principal); E66.9 Obesity, unspecified; I10 Essential (primary) hypertension; Z98.84 Bariatric surgery status; Z96.649 Presence of unspecified artificial hip joint; Z68.35 Body mass index [BMI] 35.0-35.9, adult

== ENCOUNTER 2018-07-15 22:43 | Emergency (ER) | payer BC ==
[~2018-07-15] VITALS: Ht 157.5 cm; Wt 90.0 kg
[~2018-07-15 22:43] MED LIST changes: -ACET-1256 PO; +ASPI-320 PO; +HYDR-5688 PO
[2018-07-15 22:49] VITALS: TEMP 36.9; Ht 157.5 cm; Wt 90.0 kg
[2018-07-15] MEDS ORDERED: GI COCKTAIL PO STA (23:02)
[2018-07-15] MEDS ORDERED: ALUMINUM/MAGNESIUM SUSP 30 ML UDC ONE (23:25)
[2018-07-15] MEDS ORDERED: LIDOCAINE HCL 2% VISC SOLN 20 ML UDC ONE (23:25)
[2018-07-15 23:33] LABS: BASO % 0.1 %; BASO ABS # 0.01 K/uL (0-0.2); EOS % 0.8 %; EOS ABS # 0.07 K/uL (0-0.5); HEMATOCRIT 44.9 % (37-47); HEMOGLOBIN 14.8 g/dL (12.0-16.0); IG# 0.02 K/uL (0.00-0.02); LYMPH % 17.4 %; LYMPH ABS # 1.52 K/uL (1.2-3.4); MEAN CELL VOLUME 90.5 fL (80-100); MEAN CORPUSCULAR HEMOGLOBIN 29.8 pg (25-34); MEAN PLATELET VOLUME 10.6 fL (7.4-10.4); MONO % 3.3 %; MONO ABS # 0.29 K/uL (0.11-0.59); NEUT % 78.2 %; NEUT ABS # 6.85 K/uL (1.4-6.5); PLATELET COUNT 203 K/uL (130-400); RED CELL DISTRIBUTION WIDTH CV 14.1 % (11.5-14.5); RED CELL DISTRIBUTION WIDTH SD 47.2 fL (36.4-46.3); WHITE BLOOD COUNT 8.76 K/uL (4.8-10.8)
[2018-07-15] MEDS ORDERED: ONDANSETRON INJ 2 MG/ML 2 ML VIAL ONE (23:45)
[2018-07-15 23:49] LABS: PTT PATIENT 24.9 SECONDS (21.0-31.0)
[2018-07-15] MEDS ORDERED: CYNI1000 INJ (23:59)
[2018-07-16 00:02] LABS: ALBUMIN 3.9 gm/dl (3.4-5.0); ALKALINE PHOSPHATASE 102 U/L (45-117); ALT/SGPT 34 U/L (12-78); AST/SGOT 21 U/L (15-37); BLOOD UREA NITROGEN 17 mg/dl (7-18); CARBON DIOXIDE 24 mmol/L (21-32); CREATININE 0.75 mg/dl (0.60-1.20); GLUCOSE 167 mg/dl (70-99); LIPASE 191 U/L (73-393); POTASSIUM 3.8 mmol/L (3.5-5.1); SODIUM 139 mmol/L (136-145); TOTAL PROTEIN 7.9 gm/dl (6.4-8.2)
--- NOTE | 2018-07-16 00:41 | EMERGENCY ROOM VISIT NOTE ---
History First contact with patient: 22:54 Chief Complaint: ABDOMINAL PAIN Stated Complaint: BAD UPPER STOMACH PAIN History of Present Illness The patient is a 53 year old female who presents to the Emergency Room with complaints of epigastric abdominal pain which began today. She states all day, symptoms have been worsening, however the symptoms became severe after eating a steak salad for dinner. The patient did take 2 Zantac this evening without improvement in her pain. She states since dinner, she has been vomiting water and unable to keep even crackers down. She reports dry heaves and burping/ reflux. The patient denies any history of cholecystitis or cholecystectomy. She does have a history of gastritis, and states this tends to flareup when she is stressed. She states she has been going through a significant amount of stress and has been very anxious over the past few weeks. She states symptoms are significantly worse with lying flat and improves with sitting upright. She is chronically on omeprazole 20 mg which she takes daily at bedtime. She denies any vomiting blood, chest pain, dyspnea, diarrhea or constipation, fever , chills, headache, syncope, lightheadedness, or other concerning symptoms. Review of Systems A complete 10 point review of systems was reviewed with the patient with pertinent positives and negatives as per history of present illness. All else were negative. Past Medical/Surgical History Surgical Problems: (1) History of total knee arthroplasty (2) Post-operative state (3) S/P TKR (total knee replacement) Social History Smoking Status: Never Smoker Smokeless Tobacco Use: No Alcohol Use: occasionally Drug Use: none Marital Status: Housing Status: lives with family Occupation Status: employed Current/Historical Medications Scheduled Calcium-Magnesium W/ Vitamin D (Citracal Calcium+D Slow R), 1 TAB PO BID Cholecalciferol (Vitamin D3), 5,000 INTER.UNIT PO QAM Cyanocobalamin (Cyanocobalamin), 1,000 MCG INJ q 3 weeks Duloxetine HCl (Cymbalta), 60 MG PO QAM Ferrous Sulfate (Iron), 1 TAB PO BID Losartan Potassium (Cozaar), 1 TAB PO QAM Multivitamin (Multivitamin), 1 TAB PO QAM Ondasetron Odt (Zofran Odt), 4 MG SL Q6H Senna/Docusate Sod (Senokot S), 2 TAB PO BID Sucralfate (Carafate), 1 TAB PO QID Scheduled PRN Omeprazole (Prilosec), 20 MG PO HS PRN for PRN Physical Exam Vital Signs Date Time Temp Pulse Resp B/P (MAP) Pulse Ox O2 Delivery O2 Flow Rate FiO2 07/16/18 01:58 65 16 165/98 96 Room Air 07/16/18 00:23 74 16 178/107 94 Room Air 07/15/18 22:49 36.9 65 20 194/97 93 Room Air Physical Exam VITALS: Vitals are noted on the nurse's note and reviewed by myself. Vital signs stable. GENERAL: This is a 53-year-old white female, in no acute distress, nondiaphoretic, well-developed well-nourished. SKIN: The skin was without rashes, erythema, edema, or bruising. There is no tenting of the skin. Capillary reflex less than 2 seconds. HEAD: Normocephalic atraumatic. EARS: External auditory canals clear, tympanic membranes pearly duran without erythema or effusion bilaterally. EYES: Pupils equal round and reactive to light and accommodation. Conjunctivae without injection, sclerae without icterus. Extraocular movements intact. NOSE: Patent, turbinates without inflammation or discharge. No sinus tenderness. MOUTH: Mucous membranes moist. Tonsils are not enlarged. Pharynx without erythema or exudate. Uvula midline. Airway patent. Tongue does not deviate. NECK: Supple without nuchal rigidity. No lymphadenopathy. No thyromegaly. Cervical spine is nontender. No JVD. HEART: Regular rate and rhythm without murmurs gallops or rubs. LUNGS: Clear to auscultation bilaterally without wheezes, rales or rhonchi. No dullness to percussion. No retractions or accessory muscle use. ABDOMEN: Positive bowel sounds x 4. Normal tympanic percussion. Epigastric and right upper quadrant abdominal discomfort. The abdomen is otherwise soft, nontender, without masses or organomegaly. Keyes sign negative. No guarding or rebound tenderness. MUSCULOSKELETAL: No muscle atrophy, erythema, or edema noted. Full range of motion without joint tenderness in all extremities. No tenderness to palpation. Normal gait. Strength 5/5 throughout. NEURO: Patient was alert and oriented to person place and time. Normal sensation to light and sharp touch. Deep tendon reflexes 2+ throughout. No focal neurological deficits. Medical Decision & Procedures ER Provider Diagnostic Interpretation: BILIARY ULTRASOUND CLINICAL HISTORY: Right upper quadrant abdominal pain COMPARISON STUDY: No previous studies for comparison. FINDINGS: The pancreas was not visualized. The liver. Sonographically normal. There is no ductal dilatation. The common bile duct measured 4 mm. The gallbladder contains shadowing calculi and a small amount of sludge. There is no gallbladder wall thickening. There is no pericholecystic fluid. The technologist reported negative sonographic Keyes sign. There is no right-sided hydronephrosis. IMPRESSION: 1. Cholelithiasis. No evidence of ductal dilatation. 2. Nondiagnostic evaluation the pancreas Electronically signed by: Gary Yanes M.D. 07/16/2018 6:51 AM Dictated Date/Time: 07/16/2018 6:50 AM Laboratory Results 07/15/18 23:20 Red Blood Count 4.96, Mean Corpuscular Volume 90.5, Mean Corpuscular Hemoglobin 29.8, Mean Corpuscular Hemoglobin Concent 33.0, Mean Platelet Volume 10.6, Neutrophils (%) (Auto) 78.2, Lymphocytes (%) (Auto) 17.4, Monocytes (%) (Auto) 3.3, Eosinophils (%) (Auto) 0.8, Basophils (%) (Auto) 0.1, Neutrophils # (Auto) 6.85, Lymphocytes # (Auto) 1.52, Monocytes # (Auto) 0.29, Eosinophils # (Auto) 0.07, Basophils # (Auto) 0.01 07/15/18 23:20 Test 07/15/18 23:20 White Blood Count 8.76 K/uL (4.8-10.8) Red Blood Count 4.96 M/uL (4.2-5.4) Hemoglobin 14.8 g/dL (12.0-16.0) Hematocrit 44.9 % (37-47) Mean Corpuscular Volume 90.5 fL (80-100) Mean Corpuscular Hemoglobin 29.8 pg (25-34) Mean Corpuscular Hemoglobin Concent 33.0 g/dl (32-36) Platelet Count 203 K/uL (130-400) Mean Platelet Volume 10.6 fL (7.4-10.4) Neutrophils (%) (Auto) 78.2 % Lymphocytes (%) (Auto) 17.4 % Monocytes (%) (Auto) 3.3 % Eosinophils (%) (Auto) 0.8 % Basophils (%) (Auto) 0.1 % Neutrophils # (Auto) 6.85 K/uL (1.4-6.5) Lymphocytes # (Auto) 1.52 K/uL (1.2-3.4) Monocytes # (Auto) 0.29 K/uL (0.11-0.59) Eosinophils # (Auto) 0.07 K/uL (0-0.5) Basophils # (Auto) 0.01 K/uL (0-0.2) RDW Standard Deviation 47.2 fL (36.4-46.3) RDW Coefficient of Variation 14.1 % (11.5-14.5) Immature Granulocyte % (Auto) 0.2 % Immature Granulocyte # (Auto) 0.02 K/uL (0.00-0.02) Prothrombin Time 10.0 SECONDS (9.0-12.0) Prothromb Time International Ratio 1.0 (0.9-1.1) Activated Partial Thromboplast Time 24.9 SECONDS (21.0-31.0) Partial Thromboplastin Ratio 1.0 Urine Color YELLOW Urine Appearance CLEAR (CLEAR) Urine pH 6.5 (4.5-7.5) Urine Specific [place] 1.020 (1.000-1.030) Urine Protein NEG (NEG) Urine Glucose (UA) NEG (NEG) Urine Ketones 1+ (NEG) Urine Occult Blood NEG (NEG) Urine Nitrite NEG (NEG) Urine Bilirubin NEG (NEG) Urine Urobilinogen NEG (NEG) Urine Leukocyte Esterase NEG (NEG) Anion Gap 12.0 mmol/L (3-11) Est Creatinine Clear Calc Drug Dose 89.4 ml/min Estimated GFR () 104.7 Estimated GFR (Non- 90.4 BUN/Creatinine Ratio 22.5 (10-20) Calcium Level 9.0 mg/dl (8.5-10.1) Total Bilirubin 0.5 mg/dl (0.2-1) Aspartate Amino Transf (AST/SGOT) 21 U/L (15-37) Alanine Aminotransferase (ALT/SGPT) 34 U/L (12-78) Alkaline Phosphatase 102 U/L (45-117) Troponin I < 0.015 ng/ml (0-0.045) Total Protein 7.9 gm/dl (6.4-8.2) Albumin 3.9 gm/dl (3.4-5.0) Globulin 4.0 gm/dl (2.5-4.0) Albumin/Globulin Ratio 1.0 (0.9-2) Lipase 191 U/L (73-393) Medications Administered Medications (Trade) Dose Ordered Sig/Silvia Route Start Time Stop Time Status Last Admin Dose Admin Miscellaneous Medication (Gi Cocktail) 24 ml NOW STAT PO 07/15/18 23:02 07/15/18 23:05 DC 07/15/18 23:27 24 ML Lidocaine HCl (Viscous Lidocaine 2% Soln) 20 ml STK-MED ONCE .ROUTE 07/15/18 23:25 07/15/18 23:26 DC 07/15/18 23:27 20 ML Al Hydroxide/Mg Hydroxide (Maalox Susp) 30 ml STK-MED ONCE .ROUTE 07/15/18 23:25 07/15/18 23:26 DC 07/15/18 23:27 30 ML Ondansetron HCl (Zofran Inj) 4 mg STK-MED ONCE .ROUTE 07/15/18 23:45 07/15/18 23:46 DC 07/15/18 23:45 4 MG Famotidine (Pepcid Tab) 20 mg NOW STAT PO 07/16/18 00:43 07/16/18 00:45 DC 07/16/18 00:49 20 MG Ondansetron HCl (Zofran Inj) 4 mg NOW STAT IV 07/16/18 01:24 07/16/18 01:25 DC 07/16/18 01:30 4 MG ECG Per My Interpretation Indication: abdominal pain Rate (beats per minute): 57 Rhythm: sinus bradycardia Findings: no acute ischemic change, no ectopy Comparison ECG Date: no prior available ED Course The patient was seen and evaluated as above. IV access obtained, labs drawn. The patient was given a GI cocktail. The patient began complaining of severe nausea. She was given Zofran IV. Imaging performed and reviewed by myself and radiologist as above. Labs reviewed by myself. The patient was re-evaluated. She is feeling better, but continues to experience discomfort. She was given a dose of PO Pepcid. I discussed the findings with the patient at bedside. I did discuss the case with my attending. The patient was re-evaluated again. C/o ongoing nausea. Given repeat dose of Zofran. Discharge instructions reviewed, the patient was discharged home in good condition. Medical Decision This is a 53-year-old female patient presents emergency department today complaining of epigastric abdominal pain. She states the pain is been intermittent for the past few weeks, however became worsening today. Pain became severe after eating a steak salad for dinner. The pain improves with sitting upright and worsens with lying flat. She does have a history of gastric bypass surgery, but does not have any history of peptic ulcer disease. She is treated with 20 mg omeprazole daily at bedtime. The patient has experienced similar symptoms in the past when under stressful situations, which she states is consistent with her current situation. Workup here in the emergency department was overall negative. No leukocytosis, anemia, thrombocytopenia. The patient's renal, hepatic function and electrolytes are normal. Troponin was negative. Lipase was negative. Coagulation factors normal. Urinalysis negative for signs of infection. Ultrasound did not show any evidence for acute cholecystitis. This was nondiagnostic in terms of the pancreas, as the pancreas is not visualized due to overlying bowel gas. EKG without evidence for acute coronary syndrome. Suspect an acute gastritis as the cause of the patient's symptoms, however did consider gastric ulcer. The patient's PPI will be increased, and we will add scheduled Zantac as well as Carafate until she is able to follow-up outpatient with her PCP. She was given Zofran for nausea. I encouraged the patient to follow-up closely. I advised her to eat a bland diet and consider elevating the head of her bed while sleeping. She verbalized agreement and understanding. She was feeling significantly improved prior to discharge. All questions answered to patient and her satisfaction prior to discharge. Etiologies such as diverticulosis, AVM, coagulopathy, colitis, inflammatory bowel disease, malignancy,Ayesha-Howard tear, esophagitis, peptic ulcer disease , variceal bleed, gastritis, epistaxis, fissure, hemorrhoids, as well as others were entertained. The chart was completed utilizing [employer] voice recognition software. Grammatical errors, random word insertions, pronoun errors, and incomplete sentences are an occasional consequence of this system due to software limitations, ambient noise, and hardware issues. Any formal questions or concerns about the content, text, or information contained within the body of this dictation should be directly addressed to the provider for clarification. Medication Reconcilliation Current Medication List: was personally reviewed by me Blood Pressure Screening Patient's blood pressure: Elevated blood pressure Blood pressure disposition: Elevated BP felt to be situational Impression Primary Impression: Gastritis Departure Information Dispostion Home / Self-Care Condition GOOD Prescriptions Sucralfate (CARAFATE) 1 Gm Tab 1 TAB PO QID for 30 Days, #120 TAB Prov: Suad Torres PA-C 07/16/18 Ondasetron Odt (ZOFRAN ODT) 4 Mg Tab 4 MG SL Q6H for Nausea, #6 TAB Prov: Suad Torres PA-C 07/16/18 Referrals Jennifer Lucio M.D. (PCP) Patient Instructions ED Gastritis, My [facility] Additional Instructions You have been treated in the Emergency Department for your suspected gastritis . Laboratory results and Imaging studies have ruled out any other emergent or surgical gastrointestinal issues. Zofran (ondansetron) tablets 4mg: Take one every 4-6 hours as needed for nausea. You should take omeprazole 40 mg as prescribed. Note, this is double the dose of what you are currently taking. This is a drug that will help with any possible indigestion that might be contributing to your pain/discomfort. You should take this medicine EVERY day for the best results. This medicine is not intended to be used for immediate relief of symptoms, but rather to reduce the risk of recurrence of symptoms. You should take Zantac 150mg twice daily. This medication will also help with reflux symptoms. Use Carafate 1 gram 4x daily until follow-up with your PCP/GI specialist. Take 1 hour before meals and at bedtime. You should eat a bland diet for the next few days. Some suggested bland dietary foods: Bananas, Rice, Applesauce, [place], or Boiled Chicken. These foods are easy to digest and help you to recover at a faster rate. All meals for the next few days should be small to construction carpenters helper in bowel rest. For pain control, you can use the following [id number]-[id number] medicines (if >12 yo): Acetaminophen(Tylenol) may be used for fever or pain. Use 1000mg every six hours as needed. Avoid using more than 3000mg in a 24 hour period. You should schedule a follow-up appointment with your Primary Care Provider in 2 -3 days for further evaluation from today's Emergency Department visit. Your Primary Care Provider should be involved in the addition of any new medications. Your Primary Care Provider may also refer you to a Senior Data Integration Developer, a doctor who specializes in the digestive system. Return to the Emergency Department if your current symptoms worsen despite treatment course outlined above, or if you develop any of the following symptoms : worsening abdominal pain, associated chest or back pain, worsening nausea/ vomiting, dizziness, shortness of breath, blood in your vomit, or fainting. Problem Qualifiers Primary Impression: Gastritis Gastritis type: unspecified gastritis Chronicity: acute Gastritis bleeding : without bleeding Qualified Codes: K29.00 - Acute gastritis without bleeding
[2018-07-16] MEDS ORDERED: FAMOTIDINE 20 MG TAB PO STA (00:43)
[2018-07-16] MEDS ORDERED: ONDANSETRON INJ 2 MG/ML 2 ML VIAL IV STA (01:24)
[2018-07-16] MEDS ORDERED: ONDA4TAB10 SL (01:34)
[2018-07-16] MEDS ORDERED: SUCR1TAB29 PO (01:34)
[2018-07-16 01:58] VITALS: BP 165/98; PULSE 65; O2SAT 96
--- NOTE | 2018-07-16 06:52 | DIAGNOSTIC IMAGING REPORT ---
BILIARY ULTRASOUND CLINICAL HISTORY: Right upper quadrant abdominal pain COMPARISON STUDY: No previous studies for comparison. FINDINGS: The pancreas was not visualized. The liver. Sonographically normal. There is no ductal dilatation. The common bile duct measured 4 mm. The gallbladder contains shadowing calculi and a small amount of sludge. There is no gallbladder wall thickening. There is no pericholecystic fluid. The technologist reported negative sonographic Keyes sign. There is no right-sided hydronephrosis. IMPRESSION: 1. Cholelithiasis. No evidence of ductal dilatation. 2. Nondiagnostic evaluation the pancreas Electronically signed by: Gary Yanes M.D. 07/16/2018 6:51 AM Dictated Date/Time: 07/16/2018 6:50 AM
== END 2018-07-16 02:04 | disposition home or self-care (01) ==
LOC: C.EDB 22:45 → C.EDA 07-16 02:04
DX: K29.00 Acute gastritis without bleeding (principal); Z98.84 Bariatric surgery status; Z87.19 Personal history of other diseases of the digestive system

== ENCOUNTER 2025-10-22 12:57 | Inpatient (IN) ==
[2025-10-22] MEDS: PLASMA-LYTE A 1,000 ML IV ONE (14:01)
--- NOTE | 2025-10-22 14:11 | CT Scan Report ---
CT SCAN OF THE BRAIN WITHOUT IV CONTRAST CLINICAL HISTORY: Right-sided temporal headache COMPARISON STUDY: CT angiography the brain dated 04/27/2022 TECHNIQUE: Unenhanced axial CT scan of the brain was performed from the vertex to the skull base. A dose lowering technique was utilized adhering to the principles of ALARA. CT DOSE: 547.75 mGy.cm FINDINGS: No intra or extra-axial mass lesions are visualized. There is a subtle hypodensity within the right posterior inferior cerebellum viewed as suspicious for subacute infarct. MRI is recommended in follow-up. There are patchy white matter hypodensities likely on a small vessel basis. There is no evidence of acute hemorrhage. There is no midline shift. There is no hydrocephalus. There is basal ganglial mineralization. No calvarial lesions are visualized. No orbital abnormalities are evident IMPRESSION: 1. Interval development of subtle hypodensity within the right posterior inferior cerebellum is suspi cious for subacute infarct. MRI is recommended in follow-up. ACT 112: Negative or not required by law. Electronically signed by: Gary Yanes M.D. 10/22/2025 2:09 PM
[2025-10-22 14:12] LABS: Hematocrit (blood only) 38.9 % (37.0-47.0); Hemoglobin 12.8 g/dL (12.0-16.0); Immature Granulocytes # (auto) 0.01 K/uL (0.01-0.20); Immature Granulocytes % (auto) 0.2 %; Mean Corpuscular Hemoglobin 31.4 pg (25.0-34.0); Mean Corpuscular Volume 95.3 fL (80.0-100.0); Platelet Count 180 K/uL (130-400); RDW Standard Deviation 45.9 fL (36.4-46.3); Red Blood Count 4.08 M/uL (4.20-5.40); White Blood Count 6.09 K/ul (4.8-10.8)
--- NOTE | 2025-10-22 14:17 | Emergency Department Note ---
Impression & Plan Cerebellar stroke, acute, Headache ED Provider Note NAME: ROHAN CASTREJON AGE: 60 SEX: F : 1965 ARRIVES VIA: Walk-In INFORMANT: Patient, ED PROVIDER(S): Andrea Almeida DO CHIEF COMPLAINT: Headache HPI: This is a 60-year-old female with the PMHx of hypertension, gastric bypass, and GERD presenting to [facility] for further evaluation of headache. Patient states that she does not get headaches. She states she has severe right-sided head pain. This is just above her ear. Patient reports this is sharp and stabbing. She denies any trauma. Patient states that this is very atypical for her. She states yesterday she did have some dizziness. Patient describes this as the room spinning. She felt like things on the wall were moving. Patient states that she has had issues with her vision that have been ongoing over the last few months. They deny fever or chills. No cough or congestion. Denies chest pain or palpitations. No shortness of breath. They deny abdominal pain, nausea and vomiting. No urinary complaints. No recent changes in bowel movements. Patient denies recent changes in medications or OTC supplements. Patient offers no other complaints, today. ADDITIONAL HISTORY OBTAINED: Per HPI Chronic Medical/Social Conditions Affecting Care: Per HPI PAST MEDICAL HISTORY: See Below PAST SURGICAL HISTORY: See Below FAMILY HISTORY: See Below SOCIAL HISTORY: See Below HOME MEDICATIONS: See Below ALLERGIES: See Below VITALS: See Below PHYSICAL EXAMINATION: GENERAL: Sitting up in bed, alert, well appearing, well nourished, no distress, non-toxic EYE EXAM: normal conjunctiva. PERRL and EOM's grossly intact. OROPHARYNX: no exudate, no erythema, lips, buccal mucosa, and tongue normal and mucous membranes are moist NECK: supple, no nuchal rigidity, no adenopathy, non-tender LUNGS: Clear to auscultation. Normal chest wall mechanics HEART: no murmurs, regular rate, regular rhythm ABDOMEN: abdomen soft, non-tender, no masses, no rebound or guarding. BACK: Back is symmetrical on inspection and there is no deformity, no midline tenderness, no CVA tenderness. SKIN: no rashes and no bruising UPPER EXTREMITIES: upper extremities are grossly normal. LOWER EXTREMITIES: No pitting edema. NEURO EXAM: Normal sensorium, GCS 15, normal speech, no gross weakness of arms, no gross weakness of legs. No drift. Finger to nose intact. Gross sensation intact. MEDICAL DECISION MAKING: Differential diagnoses includes but not limited to tension type headache, migraine, CVA, intracranial hemorrhage, electrolyte derangements, dehydration In summary, this is a 60 year old female who presented with severe headache. Differential as above. Nursing notes and pertinent past medical records reviewed. Vital signs reviewed and the patient is mildly hypertensive but otherwise afebrile and hemodynamically stable. History and presentation revealed ongoing symptoms over the last day with worsening headache since this morning. Physical examination revealed as above. As a result of my initial evaluation, patient's headache is atypical. She does not get headaches. She also complains of some dizziness. I do not have significant concerns for intracranial pathology but her presentation is atypical and will obtain a CT head. IV access was established and the patient was placed on CCRM. Therapeutics ordered include IVFR. Diagnostics interpreted by me include EKG and cardiac monitoring as listed below: -Cardiac Monitoring: An order was placed for continuous cardiac monitoring. The monitor shows a rate of [] with [] rhythm. -ECG: Normal sinus rhythm at a ventricular rate of [address] segment changes to suggest STEMI. Intervals are within normal limits. Patient completed laboratory studies and imaging. Results independently interpreted by me are no leukocytosis or anemia. There is no significant electrolyte derangements or significant kidney dysfunction from baseline. No changes in LFTs. The patient was managed with IVFR with some improvement in her symptoms. Given the patient's atypical presentation for a headache, we did obtain a CT head. CT head was suggestive of possible cerebellar stroke. CTAs confirm this finding. Patient has an acute right sided cerebellar stroke at this time. Will touch base with neurology. Plan for likely admission with MRI for further workup of stroke with risk reduction therapies. Ultimately, the decision was made to admit the patient for acute cerebellar stroke. I discussed the case with the hospitalist service via telephone/Tiger[employer] and they are agreeable to admit the patient to their services by Dr. Marcelle GIMENEZ Hospitalist. Based on the above, including the patient's age, coexisting illnesses, labs, imaging, and exam findings the decision to treat as an inpatient. I discussed the patient with the hospitalist team who recommended admission to their services. They received the medications, treatments, interventions indicated above and their condition remained guarded. I discussed my findings with the patient and their family and they understand and agree with the treatment plan. All patient / family questions were answered to their satisfaction. Case discussed with consultants including [facility] Neurology, Dr. Doe. He recommended MRI, admission, q2h neuro checks and antiplatelets / further stroke risk reduction therapies. Consults/Care Managements Discussions: Per [facility] ER treatment provided: See above Procedures:none Critical Care: None The chart was completed utilizing [employer] Speech voice recognition software. Grammatical errors, random word insertions, pronoun errors, and incomplete sentences are an occasional consequence of this system due to software limitations, ambient noise, and hardware issues. Any formal questions or concerns about the content, text, or information contained within the body of this dictation should be directly addressed to the physician for clarification. Past Med/Surg History Problem List Headache (Acute) Cerebellar stroke, acute (Acute) COVID-19 (Acute) S/P TKR (total knee replacement) History of colonoscopy Diverticulitis Gastric bypass status for obesity History of total knee arthroplasty Pneumonia due to COVID-19 virus (Acute) Contusion of knee, right (Acute) Post-operative state Medical History Hypertension Social History Smoking Status: Never smoker Preferred Language: Afghan marital status: current occupational status: employed Feels Safe at Home: Yes Allergies Allergies Allergy/AdvReac Type Severity Reaction Status Date / Time metronidazole [From Flagyl] AdvReac Intermediate Numbness Unverified 10/22/25 16:00 Home Meds Home Medications Medication Instructions Recorded Confirmed calcium ER 600 mg (as carb,cit)-D3 1 tab PO BID 10/10/20 10/22/25 12.5 mcg (500 unit) tablet, ext.rel (Citracal-D3 Slow Release) cholecalciferol (vitamin D3) 125 125 mcg PO QAM 10/10/20 10/22/25 mcg (5,000 unit) tablet (Vitamin D3) cyanocobalamin (vitamin B-12) 1,000 mcg IM .Q3WK 10/10/20 10/22/25 1,000 mcg/mL injection solution duloxetine 60 mg capsule,delayed 60 mg PO QAM 10/10/20 10/22/25 release ferrous sulfate 142 mg (45 mg 142 mg PO BID 10/10/20 10/22/25 iron) tablet,extended release (Slow Fe) losartan 50 mg tablet 50 mg PO QAM 10/10/20 10/22/25 multivitamin 1 tab PO QAM 10/10/20 10/22/25 sennosides 8.6 mg tablet (Senna 17.2 mg PO BID 10/10/20 10/22/25 Lax) albuterol sulfate 90 mcg/actuation 2 inh inhalation Q4H PRN Shortness 09/08/21 10/22/25 aerosol inhaler Of Breath amlodipine 10 mg tablet 10 mg PO DAILY 09/11/25 10/22/25 famotidine 20 mg tablet 20 mg PO HS 09/11/25 10/22/25 mirabegron 25 mg tablet,extended 25 mg PO BID 09/11/25 10/22/25 release 24 hr (Myrbetriq) omeprazole 40 mg capsule,delayed 40 mg PO QAM 09/11/25 10/22/25 release sucralfate 1 gram tablet 1 g PO BID 09/11/25 10/22/25 tirzepatide 15 mg/0.5 mL 15 mg subcut WK 09/11/25 10/22/25 subcutaneous pen injector (Zoey) tamsulosin 0.4 mg capsule (Flomax) 0.4 mg PO HS PRN kidney stone 10/22/25 10/22/25 valacyclovir 1 gram tablet 1,000 mg PO DAILY PRN Cold Sores 10/22/25 10/22/25 Previous Rx's Medication Instructions Recorded ondansetron 4 mg disintegrating 4 mg PO Q6H PRN nausea and 01/17/22 tablet vomiting #12 tabs oxycodone 5 mg tablet 5 mg PO Q8H PRN pain #9 tabs 09/11/25 Results & Data (ED) Vital Signs Vital Signs - 24 hr 10/22/25 12:57 10/22/25 16:32 Temperature 36.6 C Temperature Source Temporal Artery Scan Pulse Rate 75 Pulse Rate [Apical] 75 Respiratory Rate 16 18 Respiratory Effort / Characteristics Non-Labored Spontaneous Respiratory Depth Normal Respiratory Pattern Regular Blood Pressure 152/103 H Blood Pressure [Right Arm] 156/89 H Blood Pressure Mean 119 Blood Pressure Mean [Right Arm] 111 Pulse Oximetry 95 97 Oxygen Delivery Method Room Air Sepsis Recent Fever Within 48 Hours No Sepsis New/Unexplained Change in Mental Status N/A Sepsis Action Taken by Nursing No Action Required Laboratory Data 10/22/25 13:41 10/22/25 13:41 Lab Results 10/22/25 Range/Units 13:41 WBC 6.09 (4.8-10.8) K/ul RBC 4.08 L (4.20-5.40) M/uL Hgb 12.8 (12.0-16.0) g/dL Hct 38.9 (37.0-47.0) % MCV 95.3 (80.0-100.0) fL MCH 31.4 (25.0-34.0) pg MCHC 32.9 (32.0-36.0) g/dL RDW Std Deviation 45.9 (36.4-46.3) fL RDW Coeff of Riky 13.0 (11.5-14.5) % Plt Count 180 (130-400) K/uL MPV 10.1 (9.4-12.4) fL Immature Gran % (Auto) 0.2 % Neut % (Auto) 56.4 % Lymph % (Auto) 34.6 % [place] % (Auto) 7.2 % Eos % (Auto) 1.1 % Baso % (Auto) 0.5 % Neut # (Auto) 3.43 (1.40-6.50) K/uL Lymph # (Auto) 2.11 (1.20-3.40) K/uL [place] # (Auto) 0.44 (0.11-0.59) K/uL Eos # (Auto) 0.07 (0.00-0.50) K/uL Baso # (Auto) 0.03 (0.00-0.20) K/uL Immature Gran # (Auto) 0.01 (0.01-0.20) K/uL Sodium 141 (136-145) mmol/L Potassium 4.1 (3.5-5.1) mmol/L Chloride 109 H (98-107) mmol/L Carbon Dioxide 26 (21-32) mmol/L Anion Gap 6 (3-11) BUN 14 (6-23) mg/dl Creatinine 0.78 (0.6-1.2) mg/dl Est Cr Clr Drug Dosing 75.9 ml/min eGFR 86.36 BUN/Creatinine Ratio 17.9 (10-20) Glucose 99 (70-99(Fasting)) mg/dl Calcium 9.0 (8.6-10.3) mg/dl Total Bilirubin 0.5 (0.2-1.0) mg/dl AST 23 (13-39) U/L ALT 25 (7-52) U/L Alkaline Phosphatase 73 (34-104) U/L Total Protein 6.7 (6.0-8.3) gm/dl Albumin 4.3 (3.4-5.0) gm/dl Globulin 2.4 L (2.5-4.0) gm/dl Albumin/Globulin Ratio 1.8 (0.9-2) Administered Medications Discontinued Medications Parenteral Electrolytes (Plasma-Lyte A Ph 7.4) 1,000 mls @ 999 mls/hr IV .Q1H1M ONE Stop: 10/22/25 14:35 Last Admin: 10/22/25 14:01 Dose: 999 mls/hr Documented By: OLYA Ioversol (Optiray 320 125ml) 115 ml IV ONCE ONE Stop: 10/22/25 15:27 Last Admin: 10/22/25 15:27 Dose: 115 ml Documented By: JEOVANY Imaging Data Radiologist's Impression: Head CT 10/22/25 13:35 CT SCAN OF THE BRAIN WITHOUT IV CONTRAST CLINICAL HISTORY: Right-sided temporal headache COMPARISON STUDY: CT angiography the brain dated 04/27/2022 TECHNIQUE: Unenhanced axial CT scan of the brain was performed from the vertex to the skull base. A dose lowering technique was utilized adhering to the principles of ALARA. CT DOSE: 547.75 mGy.cm FINDINGS: No intra or extra-axial mass lesions are visualized. There is a subtle hypodensity within the right posterior inferior cerebellum viewed as suspicious for subacute infarct. MRI is recommended in follow-up. There are patchy white matter hypodensities likely on a small vessel basis. There is no evidence of acute hemorrhage. There is no midline shift. There is no hydrocephalus. There is basal ganglial mineralization. No calvarial lesions are visualized. No orbital abnormalities are evident IMPRESSION: 1. Interval development of subtle hypodensity within the right posterior inferior cerebellum is suspicious for subacute infarct. MRI is recommended in follow-up. ACT 112: Negative or not required by law. Electronically signed by: Gary Yanes M.D. 10/22/2025 2:09 PM Head CTA 10/22/25 14:54 CT angio head w con CLINICAL HISTORY: 60 years-old Female with eval for strok. Acute stroke like symptoms COMPARISON STUDY: Head CT same day, CTA head 04/27/2020 TECHNIQUE: Unenhanced axial CT scan of the brain is performed. Subsequently, following the IV administration of 115 cc of Optiray, CT angiogram of the brain was performed from the skull base to the vertex. Images are reviewed in the axial, sagittal, and coronal planes. 3-D MIPS images are created and assessed. IV contrast was administered without complication. All measurements were obtained according to NASCET criteria. A dose lowering technique was utilized adhering to the principles of ALARA. CT DOSE: 429.44 mGy.cm FINDINGS: CT BRAIN: Dictated separately. Large right cerebellar acute infarct. CT ANGIOGRAM OF THE BRAIN: Atherosclerosis of the cavernous and supraclinoid internal carotid arteries results in less than 50% stenosis bilaterally. The middle and anterior cerebral arteries are widely patent. The left vertebral artery is dominant. The diminutive right vertebral artery terminates into the right PICA which also appears to be patent. The basilar and posterior cerebral arteries are patent. Mild fusiform dilation of the basilar tip measures up to 4.7 mm. The cerebral venous sinuses are patent. There is no abnormal intracranial enhancement. IMPRESSION: 1. Acute right cerebellar infarct. 2. Unchanged fusiform dilation of the basilar tip. 3. Otherwise unremarkable CTA component of the study. ACT 112: Negative or not required by law. The above report was generated using voice recognition software. It may contain grammatical, syntax or spelling errors. Electronically signed by: Heriberto Yun M.D. 10/22/2025 4:00 PM Neck CTA 10/22/25 14:54 CT ANGIOGRAPHY OF THE NECK WITH CONTRAST CLINICAL HISTORY: eval for stroke headache. Altered sensorium. COMPARISON STUDY: 04/27/2022 Technique: CT angiography of the carotid and vertebral arteries was obtained using 115 cc of Optiray and 3D reconstruction on an independent workstation. NASCET criteria was utilized. Automated exposure control was utilized for the study. A dose lowering technique was utilized adhering to the principles of ALARA. CT DOSE: Findings: The visualized portions of the lung apices are unremarkable. No thyroid nodules are visualized. No salivary gland masses are visualized. There is no pathologic adenopathy within the neck. There is no evidence of vertebral artery dissection or hemodynamically significant stenosis. The left vertebral artery is dominant. The right vertebral artery terminates in a PICA branch. There is no evidence of carotid artery stenosis or dissection. IMPRESSION: No evidence of carotid or vertebral artery stenosis or dissection. ACT 112: Negative or not required by law. Electronically signed by: Gary Yanes M.D. 10/22/2025 3:45 PM Discharge Plan Visit Data Chief Complaint: Headache Stated Complaint: PAIN IN R SIDE OF HEAD ED Provider: Andrea Almeida Discharge Problem: Cerebellar stroke, acute, Headache Patient Disposition: Admitted As Inpatient Condition: Serious Forms Stand Alone Forms: [facility] Prescriptions Prescriptions: No Action multivitamin Tablet 1 tab PO QAM losartan 50 mg tablet 50 mg PO QAM sennosides [Senna Lax] 8.6 mg Tablet 17.2 mg PO BID cyanocobalamin (vitamin B-12) 1,000 mcg/mL solution 1,000 mcg IM .Q3WK duloxetine 60 mg capsule,delayed release(DR/EC) 60 mg PO QAM cholecalciferol (vitamin D3) [Vitamin D3] 125 mcg (5,000 unit) Tablet 125 mcg PO QAM ferrous sulfate [Slow Fe] 142 mg (45 mg iron) Tablet Extended Release 142 mg PO BID calcium carb, citrate-vit D3 [Citracal-D3 Slow Release] 600 mg calcium- 500 unit Tablet Extended Release 1 tab PO BID albuterol sulfate 90 mcg/actuation HFA aerosol inhaler 2 inh inhalation Q4H PRN (Reason: Shortness Of Breath) ondansetron 4 mg tablet,disintegrating 4 mg PO Q6H PRN (Reason: nausea and vomiting) Qty: 12 0RF sucralfate 1 gram tablet 1 g PO BID omeprazole 40 mg Capsule,Delayed Release(Dr/Ec) 40 mg PO QAM famotidine 20 mg tablet 20 mg PO HS amlodipine 10 mg tablet 10 mg PO DAILY mirabegron [Myrbetriq] 25 mg tablet extended release 24 hr 25 mg PO BID Mounjaro 15 mg/0.5 mL pen injector 15 mg SUBCUT WK oxycodone 5 mg tablet 5 mg PO Q8H PRN (Reason: pain) Qty: 9 0RF valacyclovir 1 gram tablet 1,000 mg PO DAILY PRN (Reason: Cold Sores) tamsulosin [Flomax] 0.4 mg capsule 0.4 mg PO HS PRN (Reason: kidney stone) Referrals Referrals: Suad Iglesias MD [Primary Care Provider] -
[2025-10-22 14:31] LABS: Alanine Aminotransferase 25.0 U/L (7-52); Albumin Globulin Ratio 1.8 (0.9-2); Albumin Level 4.3 gm/dl (3.4-5.0); Alkaline Phosphatase 73.0 U/L (34-104); Anion Gap 6.0 (3-11); Bilirubin,Total 0.5 mg/dl (0.2-1.0); Blood Urea Nitrogen 14.0 mg/dl (6-23); Calcium 9.0 mg/dl (8.6-10.3); Carbon Dioxide 26.0 mmol/L (21-32); Chloride 109.0 mmol/L (98-107); Creatinine Clr Calc Pharmacy 75.9 ml/min; Globulin 2.4 gm/dl (2.5-4.0); Glucose 99.0 mg/dl (70-99(Fasting)); Potassium 4.1 mmol/L (3.5-5.1); Sodium 141.0 mmol/L (136-145); Total Protein 6.7 gm/dl (6.0-8.3)
--- NOTE | 2025-10-22 14:43 | Electrocardiogram Report ---
Test Reason : Blood Pressure : */* mmHG Vent. Rate : 68 BPM Atrial Rate : 68 BPM P-R Int : 144 ms QRS Dur : 80 ms QT Int : 422 ms P-R-T Axes : 59 -23 18 degrees QTcB Int : 448 ms Normal sinus rhythm Poor R wave progression, consider anterior AL vs. lead placement vs. LVH Abnormal ECG When compared with ECG of 27-Apr-2022 20:15, No significant change was found Confirmed by Clayton Tate ([id number]) on 10/22/2025 2:42:47 PM Referred By: Confirmed By: Clayton Tate
[2025-10-22] MEDS: OPTIRAY 320 125ml IV ONE (15:27)
--- NOTE | 2025-10-22 15:47 | CT Scan Report ---
CT ANGIOGRAPHY OF THE NECK WITH CONTRAST CLINICAL HISTORY: eval for stroke headache. Altered sensorium. COMPARISON STUDY: 04/27/2022 Technique: CT angiography of the carotid and vertebral arteries was obtained using 115 cc of Optiray and 3D reconstruction on an independent workstation. NASCET criteria was utilized. Automated exposur e control was utilized for the study. A dose lowering technique was utilized adhering to the princip les of MORE. CT DOSE: Findings: The visualized portions of the lung apices are unremarkable. No thyroid nodules are visualized. No salivary gland masses are visualized. There is no pathologic adenopathy within the neck. There is no evidence of vertebral artery dissection or hemodynamically significant stenosis. The left vertebral artery is dominant. The right vertebral artery terminates in a PICA branch. There is no evidence of carotid artery stenosis or dissection. IMPRESSION: No evidence of carotid or vertebral artery stenosis or dissection. ACT 112: Negative or not required by law. Electronically signed by: Gary Yanes M.D. 10/22/2025 3:45 PM
--- NOTE | 2025-10-22 16:01 | CT Scan Report ---
CT angio head w con CLINICAL HISTORY: 60 years-old Female with eval for strok. Acute stroke like symptoms COMPARISON STUDY: Head CT same day, CTA head 04/27/2020 TECHNIQUE: Unenhanced axial CT scan of the brain is performed. Subsequently, following the IV adminis tration of 115 cc of Optiray, CT angiogram of the brain was performed from the skull base to the vert ex. Images are reviewed in the axial, sagittal, and coronal planes. 3-D MIPS images are created and a ssessed. IV contrast was administered without complication. All measurements were obtained according to NASCET criteria. A dose lowering technique was utilized adhering to the principles of ALARA. CT DOSE: 429.44 mGy.cm FINDINGS: CT BRAIN: Dictated separately. Large right cerebellar acute infarct. CT ANGIOGRAM OF THE BRAIN: Atherosclerosis of the cavernous and supraclinoid internal carotid arteries results in less than 50% stenosis bilaterally. The middle and anterior cerebral arteries are widely patent. The left vertebral artery is dominant. The diminutive right vertebral artery terminates into the right PICA which also appears to be patent. The basilar and posterior cerebral arteries are patent. Mild fusiform dilation of the basilar tip measures up to 4.7 mm. The cerebral venous sinuses are patent. There is no abnorma l intracranial enhancement. IMPRESSION: 1. Acute right cerebellar infarct. 2. Unchanged fusiform dilation of the basilar tip. 3. Otherwise unremarkable CTA component of the study. ACT 112: Negative or not required by law. The above report was generated using voice recognition software. It may contain grammatical, syntax o r spelling errors. Electronically signed by: Heriberto Yun M.D. 10/22/2025 4:00 PM
--- NOTE | 2025-10-22 17:00 | History & Physical Report ---
Date of Service October 22, 2025 Assessment & Plan (1) Cerebellar stroke, acute: (2) Headache: Plan: Patient is 60 year old female HTN, DM II, obesity s/p gastric bypass, GERD, history GI bleed, overactive bladder, recurrent UTI, kidney stones, OA presented to ER with c/o TRAVIS today. Reports past couple of days with dizziness In ER vitals stable CT Head:. Interval development of subtle hypodensity within the right posterior inferior cerebellum is suspicious for subacute infarct. CTA Head: Acute right cerebellar infarct. Otherwise unremarkable CTA component of the study. CTA neck: No evidence of carotid or vertebral artery stenosis or dissection Tele to monitor for arrhythmias EKG in am MRI brain pending Echo with bubble study Fall precautions, aspiration precautions PT/OT consult Will start rosuvastatin. Start Plavix instead of aspirin given pt's h/o gastric bypass Neurology consult Lipids, A1c, CBC, BMP in am (3) Hypertension: Plan: Continue amlodipine, losartan (4) Diabetes mellitus, type II: Plan: A1c: 5.2 on 08/20/25 Managed with Mounjaro Random glucose 99 (5) Gastric bypass status for obesity: Plan: #GERD Continue Pepcid. Change omeprazole to Protonix Continue home multivitamin, vitamin D Receives B12 injections [id number] (6) Overactive bladder: Plan: #H/O recurrent UTI Continue Vibegron, trimethoprim #Chronic pain Continue duloxetine DVT Prophylaxis SCDs for now Admit telemetry Full Code as per discussion with pt Follows with Dr Iglesias for routine care Pt was seen and care coordinated with Dr Ibanez. See addendum I spent a total of 60 minutes reviewing notes, outpatient records, labs, medication, coordinating, documenting and providing care for this patient excluding time spent in the performance of separately billed services and excluding time spent by another provider/QHP. History of Present Illness Chief Complaint: TRAVIS Primary Care Provider: Suad Iglesias MD Patient is 60 year old female HTN, DM II, obesity s/p gastric bypass, GERD, history GI bleed, overactive bladder, recurrent UTI, kidney stones, OA presented to ER with c/o TRAVIS today. Reports past couple of days with dizziness and sensation "romero are moving" this occurs with sitting up and moving. States feels "wobbly" with walking over past few days. This morning around 8am right sided headache and right side of face described as sharp pain. Reports currently TRAVIS has decreased throughout the day. Denies changes in sensation of face. She feels vision is worse over the past month and followed with tube and manifold builder. Reports white strings "fireworks" on peripheral vision of both eyes intermittently over past couple of months. Reports history GI bleed with taking NSAIDs in past. Denies fever/chills, diaphoresis, N/V/D/C, syncope, loss of vision, hearing changes, neck pain, CP, SOB, palpitations, cough, sore throat, rhinorrhea, abdominal pain, paresthesias, weakness, extremity edema, rashes, dysuria, hematuria, urinary retention. Discussed patient with ER provider and patient with evidence CVA on CT head and reports spoke to neurology who suggested MRI brain Allergies Allergy/AdvReac Type Severity Reaction Status Date / Time metronidazole [From Flagyl] AdvReac Intermediate Numbness Unverified 10/22/25 16:00 Home Medications Medication Instructions Recorded Confirmed Type calcium ER 600 mg (as carb,cit)-D3 1 tab PO BID 10/10/20 10/22/25 History 12.5 mcg (500 unit) tablet, ext.rel (Citracal-D3 Slow Release) cholecalciferol (vitamin D3) 125 125 mcg PO QAM 10/10/20 10/22/25 History mcg (5,000 unit) tablet (Vitamin D3) cyanocobalamin (vitamin B-12) 1,000 mcg IM .Q3WK 10/10/20 10/22/25 History 1,000 mcg/mL injection solution duloxetine 60 mg capsule,delayed 60 mg PO QAM 10/10/20 10/22/25 History release ferrous sulfate 142 mg (45 mg 142 mg PO BID 10/10/20 10/22/25 History iron) tablet,extended release (Slow Fe) losartan 50 mg tablet 50 mg PO QAM 10/10/20 10/22/25 History multivitamin 1 tab PO QAM 10/10/20 10/22/25 History sennosides 8.6 mg tablet (Senna 17.2 mg PO BID 10/10/20 10/22/25 History Lax) albuterol sulfate 90 mcg/actuation 2 inh inhalation Q4H PRN Shortness 09/08/21 10/22/25 History aerosol inhaler Of Breath ondansetron 4 mg disintegrating 4 mg PO Q6H PRN nausea and 01/17/22 10/22/25 Rx tablet vomiting #12 tabs amlodipine 10 mg tablet 10 mg PO PM 09/11/25 10/22/25 History famotidine 20 mg tablet 20 mg PO HS 09/11/25 10/22/25 History mirabegron 25 mg tablet,extended 25 mg PO BID 09/11/25 10/22/25 History release 24 hr (Myrbetriq) omeprazole 40 mg capsule,delayed 40 mg PO QAM 09/11/25 10/22/25 History release oxycodone 5 mg tablet 5 mg PO Q8H PRN pain #9 tabs 09/11/25 10/22/25 Rx sucralfate 1 gram tablet 1 g PO TID PRN Heartburn 09/11/25 10/22/25 History tirzepatide 15 mg/0.5 mL 15 mg subcut WK 09/11/25 10/22/25 History subcutaneous pen injector (Zoey) tamsulosin 0.4 mg capsule (Flomax) 0.4 mg PO HS PRN kidney stone 10/22/25 10/22/25 History trimethoprim 100 mg tablet 100 mg PO DAILY 10/22/25 10/22/25 History valacyclovir 1 gram tablet 1,000 mg PO DAILY PRN Cold Sores 10/22/25 10/22/25 History Past Med/Surg History Problem List (Updated 10/22/25 @ 17:29 by Sia Peter PA-C) Obesity Headache (Acute) Cerebellar stroke, acute (Acute) COVID-19 (Acute) Diverticulitis Gastric bypass status for obesity Pneumonia due to COVID-19 virus (Acute) Contusion of knee, right (Acute) Post-operative state Medical History (Updated 10/22/25 @ 17:43 by Sia Peter PA-C) Overactive bladder History of kidney stones Diabetes mellitus, type II Hypertension Surgical History (Updated 10/22/25 @ 17:29 by Sia Peter PA-C) History of total knee arthroplasty History of abdominoplasty History of umbilical hernia repair History of hip replacement History of cholecystectomy History of gastric bypass S/P TKR (total knee replacement) History of colonoscopy Family History (Updated 10/22/25 @ 16:57 by Sia Peter PA-C) Mother Breast cancer Sister Breast cancer Social History (Updated 10/22/25 @ 17:25 by Sia Peter PA-C) Smoking Status: Never smoker Hx Alcohol Use: No Hx Substance Use: No Preferred Language: Andorran Sugar Mixer Required: No Beliefs That Will Affect Care: None marital status: Current Living Situation: Spouse and Family current occupational status: employed Other Information That Helps Us Care for You: No Feels Safe at Home: Yes Safety Concerns: Feels Safe At This Time Assistive Devices: None Review of Systems Review of Systems: All systems reviewed & are unremarkable except as noted in HPI & below Physical Exam Physical Exam: General: no distress, overweight female Head: normocephalic, atraumatic Eyes: PERRL, EOM's intact, conjunctiva non-injected, anicteric ENT: normal inspection external ears, nose, mucous membranes moist Neck: supple, trachea midline Lungs: clear, no respiratory distress, no wheezing/rhonchi/rales CV: RRR, no murmur, no pretibial edema Abd: normal BS, soft, non-tender Ext: no cyanosis, no calf tenderness Neuro: A&O x 3, normal affect, Cranial nerves: visual bernard intact, no nystagmus, facial sensation is intact and symmetric, face is strong and symmetric, hearing grossly intact, soft palate elevates symmetrically, no dysarthria, shoulder shrug intact, tongue is midline, normal movement, no fasciculations. Muscle tone normal. Strength 5/5 bilateral upper and lower extremities. Finger to nose intact, rapid alternating movements intact Skin: warm, dry Results & Data Results & Data Vital Signs (Past 12 Hours) Vital Signs Temp Pulse Pulse Resp BP BP Pulse Ox 10/22/25 16:32 75 18 156/89 H 97 10/22/25 12:57 36.6 C 75 16 152/103 H 95 O2 Del Method 10/22/25 16:32 Room Air 10/22/25 12:57 Laboratory Results Short CBC 10/22/25 Range/Units 13:41 WBC 6.09 (4.8-10.8) K/ul Hgb 12.8 (12.0-16.0) g/dL Hct 38.9 (37.0-47.0) % Plt Count 180 (130-400) K/uL BMP 10/22/25 13:41 Sodium 141 Potassium 4.1 Chloride 109 H Carbon Dioxide 26 BUN 14 Creatinine 0.78 Glucose 99 Calcium 9.0 Liver Function 10/22/25 Range/Units 13:41 Total Bilirubin 0.5 (0.2-1.0) mg/dl AST 23 (13-39) U/L ALT 25 (7-52) U/L Alkaline Phosphatase 73 (34-104) U/L Albumin 4.3 (3.4-5.0) gm/dl Diagnostic Findings Head CT 10/22/25 13:35 CT SCAN OF THE BRAIN WITHOUT IV CONTRAST CLINICAL HISTORY: Right-sided temporal headache COMPARISON STUDY: CT angiography the brain dated 04/27/2022 TECHNIQUE: Unenhanced axial CT scan of the brain was performed from the vertex to the skull base. A dose lowering technique was utilized adhering to the principles of ALARA. CT DOSE: 547.75 mGy.cm FINDINGS: No intra or extra-axial mass lesions are visualized. There is a subtle hypodensity within the right posterior inferior cerebellum viewed as suspicious for subacute infarct. MRI is recommended in follow-up. There are patchy white matter hypodensities likely on a small vessel basis. There is no evidence of acute hemorrhage. There is no midline shift. There is no hydrocephalus. There is basal ganglial mineralization. No calvarial lesions are visualized. No orbital abnormalities are evident IMPRESSION: 1. Interval development of subtle hypodensity within the right posterior inferior cerebellum is suspicious for subacute infarct. MRI is recommended in follow-up. ACT 112: Negative or not required by law. Electronically signed by: Gary Yanes M.D. 10/22/2025 2:09 PM Head CTA 10/22/25 14:54 CT angio head w con CLINICAL HISTORY: 60 years-old Female with eval for strok. Acute stroke like symptoms COMPARISON STUDY: Head CT same day, CTA head 04/27/2020 TECHNIQUE: Unenhanced axial CT scan of the brain is performed. Subsequently, following the IV administration of 115 cc of Optiray, CT angiogram of the brain was performed from the skull base to the vertex. Images are reviewed in the axial, sagittal, and coronal planes. 3-D MIPS images are created and assessed. IV contrast was administered without complication. All measurements were obtaine d according to NASCET criteria. A dose lowering technique was utilized adhering to the principles of ALARA. CT DOSE: 429.44 mGy.cm FINDINGS: CT BRAIN: Dictated separately. Large right cerebellar acute infarct. CT ANGIOGRAM OF THE BRAIN: Atherosclerosis of the cavernous and supraclinoid internal carotid arteries results in less than 50% stenosis bilaterally. The middle and anterior cerebral arteries are widely patent. The left vertebral artery is dominant. The diminutive right vertebral artery terminates into the right PICA which also appears to be patent. The basilar and posterior cerebral arteries are patent. Mild fusiform dilation of the basilar tip measures up to 4.7 mm. The cerebral venous sinuses are patent. There is no abnormal intracranial enhancement. IMPRESSION: 1. Acute right cerebellar infarct. 2. Unchanged fusiform dilation of the basilar tip. 3. Otherwise unremarkable CTA component of the study. ACT 112: Negative or not required by law. The above report was generated using voice recognition software. It may contain grammatical, syntax or spelling errors. Electronically signed by: Heriberto Yun M.D. 10/22/2025 4:00 PM Neck CTA 10/22/25 14:54 CT ANGIOGRAPHY OF THE NECK WITH CONTRAST CLINICAL HISTORY: eval for stroke headache. Altered sensorium. COMPARISON STUDY: 04/27/2022 Technique: CT angiography of the carotid and vertebral arteries was obtained using 115 cc of Optiray and 3D reconstruction on an independent workstation. NASCET criteria was utilized. Automated exposure control was utilized for the study. A dose lowering technique was utilized adhering to the principles of ALARA. CT DOSE: Findings: The visualized portions of the lung apices are unremarkable. No thyroid nodules are visualized. No salivary gland masses are visualized. There is no pathologic adenopathy within the neck. There is no evidence of vertebral artery dissection or hemodynamically significant stenosis. The left vertebral artery is dominant. The right vertebral artery terminates in a PICA branch. There is no evidence of carotid artery stenosis or dissection. IMPRESSION: No evidence of carotid or vertebral artery stenosis or dissection. ACT 112: Negative or not required by law. Electronically signed by: Gary Yanes M.D. 10/22/2025 3:45 PM ECG Additional Comments: sinus rhythm, rate 68, no ST elevation per my interpretation Supervising Physician Co-Signing Physician Notes I have seen and discussed the case with the collaborating advanced practitioner. I agree with the above H&P. I have reviewed and confirmed the patients medical history, the findings on physical examination, and the patients diagnosis and treatment plan with Brittani WEINBERG and agree with the information documented. Evaluated Ms. May in ED. Pleasant and asymptomatic at time of exam. Reports "days" of feeling "woobly" and off. She attributed the symptoms to her spinal stenosis, but noted a right sided headache that prompted her to come to ED. She has history of gastric bypass and cannot take aspirin. She also has history of gib. She denies issues with swallowing, acute vision changes (reports chronic changes being seen by tube and manifold builder) She states she feels improved as far as headache, noted some dizziness with position changes but otherwise no active concerns. GENERAL APPEARANCE: AxOx4, generally well-appearing F, no acute distress. HEENT: NC, AT. MMM. EOMI, clear conjunctiva, oropharynx clear. NECK: Supple without lymphadenopathy. No stiffness or restricted ROM. HEART: Normal rate and regular rhythm, normal S1/S1, no m/r/g LUNGS: CTAB, moving air well. No crackles or wheezes are heard. ABDOMEN: Soft, nontender, nondistended with good bowel sounds heard. BACK: No CVAT, no obvious deformity. EXTREMITIES: Without cyanosis, clubbing or edema. NEUROLOGICAL: Grossly nonfocal. Alert and oriented, moving all 4 extremities. CN II-XII intact, strength 5/5 in BUE/BLE extremities, no dysdiadochokinesia Skin: Warm and dry without any rash. #Subacute right cerebellar infarct discussed with Dr. Doe, singular therapy with plavix PT/OT lipid panel, A1C rest of plan as above full code as my discussion with patient I spent a total of 20 minutes coordinating, documenting, and providing care for this patient excluding time spent in the performance of separately billed services. All of the aforementioned completed outside of collaborating with the assigned advanced practitioner for a full treatment plan. I have reviewed the advanced practitioner's documentation, and I agree with, and take responsibility for the plan of care
[2025-10-22] MEDS: GADOBUTROL 65ML VIAL IV ONE (18:05)
--- NOTE | 2025-10-22 18:34 | Magnetic Resonance Report ---
MRI of the brain performed with and without IV contrast History: Dizziness Comparison: No prior Technique: Multiplanar T1 weighted, axial T2/FLAIR, and susceptibility images were obtained without intravenous contrast. Following intravenous gadolinium based contrast administration, axial T2 weighted, diffusion, and T1-weighted images were obtained. Findings: No evidence for intracranial mass lesion, mass-effect, midline shift, or abnormal extra-axial fluid collection. Postcontrast images demonstrate no abnormal intracranial enhancement. The orbits are grossly unremarkable. The ventricles and sulci are within normal limits for age. Mild scattered chronic microvascular ischemic changes in the white matter. Wedge-shaped area of restricted diffusion suggesting acute infarct in the right cerebellar hemisphere. Normal intravascular flow voids. Impression: Acute right cerebellar infarct Electronically signed by Omkar Barahona 10-22-2025 6:32 PM
[2025-10-22] MEDS ORDERED: ONDANSETRON INJ 2 MG/ML 2 ML VIAL IV PRN (18:50)
[2025-10-22] MEDS ORDERED: ALBUTEROL HFA 8 GM INHALER INH PRN (18:50)
[2025-10-22] MEDS ORDERED: SUCRALFATE 1 GM TAB PO PRN (18:50)
[2025-10-22] MEDS ORDERED: POLYETHYLENE (MIRALAX) 17 GM PACK PO PRN (18:50)
[2025-10-22] MEDS ORDERED: MAGNESIUM HYDROXIDE SUSP 30 ML UDC PO PRN (18:50)
[2025-10-22] MEDS ORDERED: PHARMACIST DISCHARGE MED REC CONSULT PRN (18:50)
[2025-10-22 18:56] VITALS: RESP 18
[2025-10-22] MEDS: CLOPIDOGREL BISULFATE 75 MG TAB PO SCH (20:56)
[2025-10-22] MEDS: CALCIUM 600MG + VIT D 400 IU TAB PO SCH (20:57)
[2025-10-22] MEDS: FAMOTIDINE 20 MG TAB PO SCH (21:03)
[2025-10-22] MEDS: ACETAMINOPHEN 325 MG TAB PO PRN (21:03)
[2025-10-22] MEDS: SENNA 8.6 MG TAB PO SCH (21:06)
[2025-10-23 06:01] LABS: Hematocrit (blood only) 39.8 % (37.0-47.0); Hemoglobin 13.2 g/dL (12.0-16.0); Mean Corpuscular Hemoglobin 31.8 pg (25.0-34.0); Mean Corpuscular Volume 95.9 fL (80.0-100.0); Platelet Count 190 K/uL (130-400); RDW Standard Deviation 45.8 fL (36.4-46.3); Red Blood Count 4.15 M/uL (4.20-5.40); White Blood Count 5.31 K/ul (4.8-10.8)
[2025-10-23 06:24] LABS: Anion Gap 6.0 (3-11); Blood Urea Nitrogen 11.0 mg/dl (6-23); Calcium 8.8 mg/dl (8.6-10.3); Carbon Dioxide 30.0 mmol/L (21-32); Chloride 107.0 mmol/L (98-107); Cholesterol 182.0 mg/dl (0-200); Creatinine Clr Calc Pharmacy 91.0 ml/min; Glucose 111.0 mg/dl (70-99(Fasting)); HDL Cholesterol 63.0 mg/dl; Potassium 4.4 mmol/L (3.5-5.1); Sodium 143.0 mmol/L (136-145); Triglycerides 154.0 mg/dl (0-150)
[2025-10-23] MEDS: VIBEGRON 75 MG TAB PO SCH (07:39)
[2025-10-23] MEDS: LOSARTAN POTASSIUM 50 MG TAB PO SCH (07:39)
[2025-10-23] MEDS: CHOLECALCIFEROL 125 MCG (5,000 UNITS) TAB PO SCH (07:39)
[2025-10-23] MEDS: FERROUS SULFATE 325 MG TAB PO SCH (07:40)
[2025-10-23] MEDS: ROSUVASTATIN CALCIUM 20 MG TAB PO SCH (07:40)
[2025-10-23] MEDS: MULTIVITAMIN TAB PO SCH (07:40)
[2025-10-23 07:42] LABS: Hemoglobin A1C 4.7 % (4.5-5.6)
--- NOTE | 2025-10-23 09:27 | Pharmacy Report ---
- Date of Service October 23, 2025 - Pharmacy CVA/TIA Medication Review Medications to Prevent Stroke handout has been added to the patients discharge packet. Antiplatelet(s) * clopidogrel 75mg daily Cholesterol * High intensity statin: rosuvastatin 20 mg daily DVT Prophylaxis * SCD knee Therapeutic Anticoagulation * No history of Afib/Aflutter noted Type 2 Diabetes * Patient does not have T2DM
--- NOTE | 2025-10-23 10:47 | Hospitalist Progress Note ---
Date of Service October 23, 2025 Assessment & Plan (1) Cerebellar stroke, acute: (2) Headache: Plan: Patient is 60 year old female HTN, DM II, obesity s/p gastric bypass, GERD, history GI bleed, overactive bladder, recurrent UTI, kidney stones, OA presented to ER with c/o TRAVIS. Reports past couple of days with dizziness CT Head:. Interval development of subtle hypodensity within the right posterior inferior cerebellum is suspicious for subacute infarct. CTA Head: Acute right cerebellar infarct. Otherwise unremarkable CTA component of the study. CTA neck: No evidence of carotid or vertebral artery stenosis or dissection MRI brainacute right cerebrallar infarct Patient is started on Plavix after discussion with neurology; has history of gastric bypass; unable to take aspirin. She is also started on rosuvastatin. Her LDL is 88 mg per DL. Continue PT OT Awaiting Echo Follow up with PCP and obtain zio-patch as outpatient. I also discussed lifestyle modification with regards to home blood pressure monitoring, diet modification. Patient verbalized understanding. (3) Hypertension: Plan: Continue amlodipine, losartan (4) Diabetes mellitus, type II: Plan: A1c: 5.2 on 08/20/25 Managed with Zoey (5) Gastric bypass status for obesity: Plan: #GERD Continue Pepcid. Change omeprazole to Protonix Continue home multivitamin, vitamin D Receives B12 injections [id number] (6) Overactive bladder: Plan: #H/O recurrent UTI Continue Vibegron, trimethoprim #Chronic pain Continue duloxetine DVT Prophylaxis SCDs for now Full Code as per discussion with pt Follows with Dr Iglesias for routine care Please note the above document was generated using voice recognition software. It may contain grammatical, syntax or spelling errors. Any formal questions or concerns about the content, text or information contained within the body of this dictation should be directly addressed to the provider for clarification I spent a total of 50 minutes reviewing notes, outpatient records, labs, medication, coordinating, documenting and providing care for this patient excluding time spent in the performance of separately billed services and excluding time spent by another provider/QHP. Admission and Anticipated Discharge Date Admission Date: October 22, 2025 Subjective Patient seen and examined at bedside. She is comfortable; not in distress. Denies any pain or discomfort. Denies any new weakness/numbness. Reports that she has been able to get up and move in and out of bed without any difficulties. No issues with coordination Review of Systems Review of Systems: All systems reviewed & are unremarkable except as noted in Subjective Physical Exam Physical Exam: Constitutional: WD/WN, vitals as above, NAD, sitting up in bed, pleasant, conversing easily Respiratory: normal respiratory effort, lungs clear to auscultation, no wheeze, rales, rhonchi. Normal insp/exp effort, no accessory muscle use Cardiovascular: RRR, no murmur, no edema Vessels: no JVD or carotid bruit Chest: normal inspection of chest Abdomen: normal bowel sounds, soft, nontender, no hepatosplenomegaly Musculoskeletal: no cyanosis or clubbing, extremities motor strength 5/5 Skin: no rashes, warm and dry normal turgor Neurologic: PERRL, EOMI, accommodation nl, no face palsy, no dysarthria CN's II- XI intact bilaterally and moves all extremities. finger nose test intact bilaterally. Results & Data Results & Data Vital Signs (Past 12 Hours) Vital Signs Temp Pulse Pulse Resp BP BP Pulse Ox 10/23/25 08:00 74 10/23/25 07:11 36.7 C 67 18 136/84 98 10/23/25 02:24 36.7 C 76 18 145/82 H 95 O2 Del Method 10/23/25 08:00 10/23/25 07:11 Room Air 10/23/25 02:24 Room Air
[2025-10-23 11:24] VITALS: TEMP 97.3; O2SAT 94
--- NOTE | 2025-10-23 12:20 | Neurology Consultation ---
Date of Consultation October 23, 2025 Assessment & Plan (1) Cerebellar stroke, acute: Yasmine May is a 60 yo F with a cryptogenic embolic cerebellar stroke. With confirmed size on MRI no specific concern for posterior fossa swelling/compression. Okay with plavix monotherapy. Statin for LDL goal <70. Agree with awaiting echo and zio patch as an outpatient. Neurology follow-up in 4-6 weeks. Can be discharged from our perspective after the echo. Telehealth Consultation Telehealth Information Telehealth Information: I performed this visit using a real-time telehealth connection between my location and the patients originating location ([facility]). After connecting through interactive tele-video, patient was identified by name and date of and/or wristband check.Patient (or authorized healthcare premium representative) was informed that this was a telemedicine visit and it was being conducted confidentially over secure lines. My office door was closed and no one else was present in the room with me.Patient (or authorized healthcare premium representative) provided consent to proceed with the visit, expressed an understanding of privacy and security of the telemedicine visit, and gave permission to have a hospital premium representative in the room in order to assist with the visit and to conduct portions of the visit, as needed. I informed the patient (or authorized healthcare premium representative) that I reviewed their record and presented the opportunity for them to ask any questions regarding the visit today. The patient agreed to participate. History of Present Illness Reason for Consultation: Cerebellar stroke Requesting Physician: Dr. Hunt Attending Physician: Delmar Hunt MD History of Present Illness Ms. May was admitted after presenting with right-sided head pain and a preceding episode of dizziness. The headache resolved overnight after administration of acetaminophen, and no new neurologic deficits were reported the following morning. She denied weakness, vision change, or slurred speech, and was able to eat and use utensils without difficulty. A cerebellar stroke was identified on imaging. She described the head discomfort as having evolved into a fuzzy sensation rather than pain, localized to the right side, without confusion. She has a history of gastric bypass surgery and works in hospital registration. Allergies Allergy/AdvReac Type Severity Reaction Status Date / Time metronidazole [From Flagyl] AdvReac Intermediate Numbness Unverified 10/22/25 16:00 Home Medications Medication Instructions Recorded Confirmed Type calcium ER 600 mg (as carb,cit)-D3 1 tab PO BID 10/10/20 10/22/25 History 12.5 mcg (500 unit) tablet, ext.rel (Citracal-D3 Slow Release) cholecalciferol (vitamin D3) 125 125 mcg PO QAM 10/10/20 10/22/25 History mcg (5,000 unit) tablet (Vitamin D3) cyanocobalamin (vitamin B-12) 1,000 mcg IM .Q3WK 10/10/20 10/22/25 History 1,000 mcg/mL injection solution duloxetine 60 mg capsule,delayed 60 mg PO QAM 10/10/20 10/22/25 History release ferrous sulfate 142 mg (45 mg 142 mg PO BID 10/10/20 10/22/25 History iron) tablet,extended release (Slow Fe) losartan 50 mg tablet 50 mg PO QAM 10/10/20 10/22/25 History multivitamin 1 tab PO QAM 10/10/20 10/22/25 History sennosides 8.6 mg tablet (Senna 17.2 mg PO BID 10/10/20 10/22/25 History Lax) albuterol sulfate 90 mcg/actuation 2 inh inhalation Q4H PRN Shortness 09/08/21 10/22/25 History aerosol inhaler Of Breath ondansetron 4 mg disintegrating 4 mg PO Q6H PRN nausea and 01/17/22 10/22/25 Rx tablet vomiting #12 tabs amlodipine 10 mg tablet 10 mg PO PM 09/11/25 10/22/25 History famotidine 20 mg tablet 20 mg PO HS 09/11/25 10/22/25 History mirabegron 25 mg tablet,extended 25 mg PO BID 09/11/25 10/22/25 History release 24 hr (Myrbetriq) omeprazole 40 mg capsule,delayed 40 mg PO QAM 09/11/25 10/22/25 History release oxycodone 5 mg tablet 5 mg PO Q8H PRN pain #9 tabs 09/11/25 10/22/25 Rx sucralfate 1 gram tablet 1 g PO TID PRN Heartburn 09/11/25 10/22/25 History tirzepatide 15 mg/0.5 mL 15 mg subcut WK 09/11/25 10/22/25 History subcutaneous pen injector (Zoey) tamsulosin 0.4 mg capsule (Flomax) 0.4 mg PO HS PRN kidney stone 10/22/25 10/22/25 History trimethoprim 100 mg tablet 100 mg PO DAILY 10/22/25 10/22/25 History valacyclovir 1 gram tablet 1,000 mg PO DAILY PRN Cold Sores 10/22/25 10/22/25 History clopidogrel 75 mg tablet 75 mg PO QAM #60 tabs 10/23/25 Rx pantoprazole 40 mg tablet,delayed 40 mg PO QAM #60 tabs 10/23/25 Rx release rosuvastatin 20 mg tablet 20 mg PO QAM #60 tabs 10/23/25 Rx Patient History Medical History (Updated 10/22/25 @ 17:43 by Sia Peter PA-C) Overactive bladder History of kidney stones Diabetes mellitus, type II Hypertension Surgical History (Updated 10/22/25 @ 17:29 by Sia Peter PA-C) History of total knee arthroplasty History of abdominoplasty History of umbilical hernia repair History of hip replacement History of cholecystectomy History of gastric bypass S/P TKR (total knee replacement) History of colonoscopy Family History (Updated 10/22/25 @ 16:57 by Sia Peter PA-C) Mother Breast cancer Sister Breast cancer Social History (Updated 10/22/25 @ 17:25 by Sia Peter PA-C) Smoking Status: Never smoker Hx Alcohol Use: No Hx Substance Use: No Preferred Language: Turkmen [employer] Assistant Required: No Beliefs That Will Affect Care: None marital status: Current Living Situation: Spouse and Family current occupational status: employed Other Information That Helps Us Care for You: No Feels Safe at Home: Yes Safety Concerns: Feels Safe At This Time Assistive Devices: None Review of Systems +Headache, resolved Physical Exam Neurological Examination: Mental Status: Awake and alert. Oriented to person, place, and time. Fluent. Comprehension intact. Affect appropriate. Cranial Nerves: II: pupils 3/3 to 2/2, bernard grossly intact. III/IV/: Versions intact without nystagmus, no gaze preference. V: Facial sensation symmetric to light touch VII: Facial expression symmetric Motor: Strength was symmetric and antigravity throughout. Pronator drift was absent. There were no abnormal movements. Sensory: Sensation to light touch was intact. Coordination: Finger to nose and heel to gorman were intact. Results & Data Vital Signs (Past 12 Hours) Vital Signs Temp Pulse Pulse Resp BP BP Pulse Ox 10/23/25 11:22 36.3 C L 81 18 147/90 H 94 10/23/25 08:00 74 10/23/25 07:11 36.7 C 67 18 136/84 98 10/23/25 02:24 36.7 C 76 18 145/82 H 95 O2 Del Method 10/23/25 11:22 Room Air 10/23/25 08:00 10/23/25 07:11 Room Air 10/23/25 02:24 Room Air Laboratory Results Abnormal lab results 10/22/25 10/23/25 Range/Units 13:41 05:46 RBC 4.08 L 4.15 L (4.20-5.40) M/uL Chloride 109 H (98-107) mmol/L Glucose 111 H (70-99(Fasting)) mg/dl Globulin 2.4 L (2.5-4.0) gm/dl Triglycerides 154 H (0-150) mg/dl VLDL Cholesterol, Calc 31 H (0-30) mg/dl Diagnostic Findings Head CT 10/22/25 13:35 CT SCAN OF THE BRAIN WITHOUT IV CONTRAST CLINICAL HISTORY: Right-sided temporal headache COMPARISON STUDY: CT angiography the brain dated 04/27/2022 TECHNIQUE: Unenhanced axial CT scan of the brain was performed from the vertex to the skull base. A dose lowering technique was utilized adhering to the principles of ALARA. CT DOSE: 547.75 mGy.cm FINDINGS: No intra or extra-axial mass lesions are visualized. There is a subtle hypodensity within the right posterior inferior cerebellum viewed as suspicious for subacute infarct. MRI is recommended in follow-up. There are patchy white matter hypodensities likely on a small vessel basis. There is no evidence of acute hemorrhage. There is no midline shift. There is no hydrocephalus. There is basal ganglial mineralization. No calvarial lesions are visualized. No orbital abnormalities are evident IMPRESSION: 1. Interval development of subtle hypodensity within the right posterior inferior cerebellum is suspicious for subacute infarct. MRI is recommended in follow-up. ACT 112: Negative or not required by law. Electronically signed by: Gary Yanes M.D. 10/22/2025 2:09 PM Head CTA 10/22/25 14:54 CT angio head w con CLINICAL HISTORY: 60 years-old Female with eval for strok. Acute stroke like symptoms COMPARISON STUDY: Head CT same day, CTA head 04/27/2020 TECHNIQUE: Unenhanced axial CT scan of the brain is performed. Subsequently, following the IV administration of 115 cc of Optiray, CT angiogram of the brain was performed from the skull base to the vertex. Images are reviewed in the axial, sagittal, and coronal planes. 3-D MIPS images are created and assessed. IV contrast was administered without complication. All measurements were obtained according to NASCET criteria. A dose lowering technique was utilized adhering to the principles of ALARA. CT DOSE: 429.44 mGy.cm FINDINGS: CT BRAIN: Dictated separately. Large right cerebellar acute infarct. CT ANGIOGRAM OF THE BRAIN: Atherosclerosis of the cavernous and supraclinoid internal carotid arteries results in less than 50% stenosis bilaterally. The middle and anterior cerebral arteries are widely patent. The left vertebral artery is dominant. The diminutive right vertebral artery terminates into the right PICA which also appears to be patent. The basilar and posterior cerebral arteries are patent. Mild fusiform dilation of the basilar tip measures up to 4.7 mm. The cerebral venous sinuses are patent. There is no abnormal intracranial enhancement. IMPRESSION: 1. Acute right cerebellar infarct. 2. Unchanged fusiform dilation of the basilar tip. 3. Otherwise unremarkable CTA component of the study. ACT 112: Negative or not required by law. The above report was generated using voice recognition software. It may contain grammatical, syntax or spelling errors. Electronically signed by: Heriberto Yun M.D. 10/22/2025 4:00 PM Neck CTA 10/22/25 14:54 CT ANGIOGRAPHY OF THE NECK WITH CONTRAST CLINICAL HISTORY: eval for stroke headache. Altered sensorium. COMPARISON STUDY: 04/27/2022 Technique: CT angiography of the carotid and vertebral arteries was obtained using 115 cc of Optiray and 3D reconstruction on an independent workstation. NASCET criteria was utilized. Automated exposure control was utilized for the study. A dose lowering technique was utilized adhering to the principles of ALARA. CT DOSE: Findings: The visualized portions of the lung apices are unremarkable. No thyroid nodules are visualized. No salivary gland masses are visualized. There is no pathologic adenopathy within the neck. There is no evidence of vertebral artery dissection or hemodynamically significant stenosis. The left vertebral artery is dominant. The right vertebral artery terminates in a PICA branch. There is no evidence of carotid artery stenosis or dissection. IMPRESSION: No evidence of carotid or vertebral artery stenosis or dissection. ACT 112: Negative or not required by law. Electronically signed by: Gary Yanes M.D. 10/22/2025 3:45 PM Brain MRI 10/22/25 16:31 MRI of the brain performed with and without IV contrast History: Dizziness Comparison: No prior Technique: Multiplanar T1 weighted, axial T2/FLAIR, and susceptibility images were obtained without intravenous contrast. Following intravenous gadolinium based contrast administration, axial T2 weighted, diffusion, and T1-weighted images were obtained. Findings: No evidence for intracranial mass lesion, mass-effect, midline shift, or abnormal extra-axial fluid collection. Postcontrast images demonstrate no abnormal intracranial enhancement. The orbits are grossly unremarkable. The ventricles and sulci are within normal limits for age. Mild scattered chronic microvascular ischemic changes in the white matter. Wedge-shaped area of restricted diffusion suggesting acute infarct in the right cerebellar hemisphere. Normal intravascular flow voids. Impression: Acute right cerebellar infarct Electronically signed by Omkar Barahona 10-22-2025 6:32 PM
--- NOTE | 2025-10-23 13:14 | Electrocardiogram Report ---
Test Reason : Blood Pressure : */* mmHG Vent. Rate : 68 BPM Atrial Rate : 68 BPM P-R Int : 142 ms QRS Dur : 82 ms QT Int : 420 ms P-R-T Axes : * 203 177 degrees QTcB Int : 446 ms Suspect arm lead reversal, interpretation assumes no reversal Normal sinus rhythm Right superior axis deviation Cannot rule out Anterior infarct (cited on or before 22-Oct-2025) T wave abnormality, consider inferior ischemia Abnormal ECG When compared with ECG of 22-Oct-2025 13:53, QRS axis Shifted left Confirmed by Clayton Tate ([id number]) on 10/23/2025 1:13:55 PM Referred By: REFERRED SELF Confirmed By: Clayton Tate
--- NOTE | 2025-10-23 14:09 | XCELERA ---
[id number]
[2025-10-23] MEDS ORDERED: STROKE PATIENT DISCHARGE STA (14:21)
[2025-10-23 14:56] VITALS: BP 136/84; PULSE 81
--- NOTE | 2025-10-23 15:20 | Discharge Summary ---
Date of Service October 23, 2025 Admission HPI Per Admitting Provider Patient is 60 year old female HTN, DM II, obesity s/p gastric bypass, GERD, history GI bleed, overactive bladder, recurrent UTI, kidney stones, OA presented to ER with c/o TRAVIS today. Reports past couple of days with dizziness and sensation "romero are moving" this occurs with sitting up and moving. States feels "wobbly" with walking over past few days. This morning around 8am right sided headache and right side of face described as sharp pain. Reports currently TRAVIS has decreased throughout the day. Denies changes in sensation of face. She feels vision is worse over the past month and followed with cardiovascular operating room nurse. Reports white strings "fireworks" on peripheral vision of both eyes intermittently over past couple of months. Reports history GI bleed with taking NSAIDs in past. Denies fever/chills, diaphoresis, N/V/D/C, syncope, loss of vision, hearing changes, neck pain, CP, SOB, palpitations, cough, sore throat, rhinorrhea, abdominal pain, paresthesias, weakness, extremity edema, rashes, dysuria, hematuria, urinary retention. Discussed patient with ER provider and patient with evidence CVA on CT head and reports spoke to neurology who suggested MRI brain Principal Diagnosis (1) Cerebellar stroke, acute: (2) Headache Discharge Exam Constitutional: WD/WN, vitals as above, NAD, sitting up in bed, pleasant, conversing easily Respiratory: normal respiratory effort, lungs clear to auscultation, no wheeze, rales, rhonchi. Normal insp/exp effort, no accessory muscle use Cardiovascular: RRR, no murmur, no edema Vessels: no JVD or carotid bruit Chest: normal inspection of chest Abdomen: normal bowel sounds, soft, nontender, no hepatosplenomegaly Musculoskeletal: no cyanosis or clubbing, extremities motor strength 5/5 Skin: no rashes, warm and dry normal turgor Neurologic: PERRL, EOMI, accommodation nl, no face palsy, no dysarthria CN's II- XI intact bilaterally and moves all extremities. finger nose test intact bilaterally. Discharge Data Allergies Allergy/AdvReac Type Severity Reaction Status Date / Time metronidazole [From Flagyl] AdvReac Intermediate Numbness Unverified 10/22/25 16:00 Consultations 10/22/25 16:43 ED Decision to Admit Stat 10/22/25 18:50 Consult Neurology Routine 10/23/25 15:10 Burn CD for patient Stat Ordered Studies 10/22/25 13:35 CT head/brain wo con Stat 10/22/25 14:54 CTA head w con [CT angio head w con] Stat CTA neck with con [CT angio neck with con] Stat 10/22/25 16:31 MRI Brain [MR brain wo/w con] Stat Hospital Course (1) Cerebellar stroke, acute: (2) Headache: (3) Hypertension: Continue amlodipine, losartan (4) Diabetes mellitus, type II: (5) Gastric bypass status for obesity: (6) Overactive bladder: Acute right cerebellar infarct Patient is 60 year old female HTN, DM II, obesity s/p gastric bypass, GERD, history GI bleed, overactive bladder, recurrent UTI, kidney stones, OA presented to ER with c/o TRAVIS. Reports past couple of days with dizziness CT Head:. Interval development of subtle hypodensity within the right posterior inferior cerebellum is suspicious for subacute infarct. CTA Head: Acute right cerebellar infarct. Otherwise unremarkable CTA component of the study. CTA neck: No evidence of carotid or vertebral artery stenosis or dissection MRI brainacute right cerebellar infarct Patient is started on Plavix after discussion with neurology; has history of gastric bypass; unable to take aspirin. She is also started on rosuvastatin. Her LDL is 88 mg per DL. will need outpatient Lipid profile to titrate dosing to LDL less than 70 Echo showed Normal EF Follow up with PCP and obtain zio-patch as outpatient. I also discussed lifestyle modification with regards to home blood pressure monitoring, diet modification. Patient verbalized understanding. I spent a total of 50 minutes reviewing notes, outpatient records, labs, medication, coordinating, documenting and providing care for this patient excluding time spent in the performance of separately billed services and excluding time spent by another provider/QHP. Total Time Total Time Spent Total Time Spent (In Minutes): 56 Total Time Includes: Examination of the Patient, Discharge Planning, Medication Reconciliation, Communication With Other Providers and Other Discharge Plan Discharge Items Patient Disposition: Home - Self-Care Reason For Visit: STROKE Discharge Diagnosis: Acute right cerebellar infarct Condition on Discharge: Fair Activity: Resume your previous activity Non-emergency contact: Primary Care Provider Call non-emergency contact if: you have any medication questions and your symptoms worsen Follow-up/Referrals: Suad Iglesias MD [Primary Care Provider] - (Date & Time 10/29/2025 9:00 AM Provider: Suad Silva MD Family Medicine [facility] ) Diet: Regular Addtl Attending Provider Instructions: You were admitted to the hospital due to stroke in the right cerebral area. You have been prescribed Plavix 75 mg to be taken once a day. You have also been prescribed rosuvastatin 20 mg to be taken once a day. Please make sure you check your blood pressure daily at home and keep a log; take the log with your primary care doctor to make adjustment to the regimen. Omeprazole has been stopped as it interacts with Plavix. You have been prescribed pantoprazole instead of it. Pending Studies at Discharge: No Stand-Alone Forms: My [facility], Work/School Release, Smoking Cessation, Medications to Prevent Stroke Medications and DC Order Prescriptions: New clopidogrel 75 mg Tablet 75 mg PO QAM Qty: 60 0RF rosuvastatin 20 mg Tablet 20 mg PO QAM Qty: 60 0RF pantoprazole 40 mg Tablet,Delayed Release (Dr/Ec) 40 mg PO QAM Qty: 60 0RF Continued multivitamin Tablet 1 tab PO QAM losartan 50 mg tablet 50 mg PO QAM sennosides [Senna Lax] 8.6 mg Tablet 17.2 mg PO BID cyanocobalamin (vitamin B-12) 1,000 mcg/mL solution 1,000 mcg IM .Q3WK duloxetine 60 mg capsule,delayed release(DR/EC) 60 mg PO QAM cholecalciferol (vitamin D3) [Vitamin D3] 125 mcg (5,000 unit) Tablet 125 mcg PO QAM ferrous sulfate [Slow Fe] 142 mg (45 mg iron) Tablet Extended Release 142 mg PO BID calcium carb, citrate-vit D3 [Citracal-D3 Slow Release] 600 mg calcium- 500 unit Tablet Extended Release 1 tab PO BID albuterol sulfate 90 mcg/actuation HFA aerosol inhaler 2 inh inhalation Q4H PRN (Reason: Shortness Of Breath) ondansetron 4 mg tablet,disintegrating 4 mg PO Q6H PRN (Reason: nausea and vomiting) Qty: 12 0RF sucralfate 1 gram tablet 1 g PO TID PRN (Reason: Heartburn) famotidine 20 mg tablet 20 mg PO HS amlodipine 10 mg tablet 10 mg PO PM mirabegron [Myrbetriq] 25 mg tablet extended release 24 hr 25 mg PO BID Mounjaro 15 mg/0.5 mL pen injector 15 mg SUBCUT WK oxycodone 5 mg tablet 5 mg PO Q8H PRN (Reason: pain) Qty: 9 0RF valacyclovir 1 gram tablet 1,000 mg PO DAILY PRN (Reason: Cold Sores) tamsulosin [Flomax] 0.4 mg capsule 0.4 mg PO HS PRN (Reason: kidney stone) trimethoprim 100 mg tablet 100 mg PO DAILY Discontinued omeprazole 40 mg Capsule,Delayed Release(Dr/Ec) 40 mg PO QAM Discharge Orders: Discharge Order (Routine); Ordered 10/23/25 Ordered By: Delmar Hunt Admission Data Admit Date/Time: 10/22/25 17:08 Attending Provider: Delmar Hunt Admit Provider: Jalyn Ibanez Primary Care Provider: Suad Iglesias Other Providers: Jalyn Ibanez; Alejandro Doe Other Interventions: Discharge Summary Assessment (RN) Last Done: 10/23/25 14:54
== END 2025-10-23 16:15 | disposition home or self-care (01) | DRG 66 ==
LOC: ED 12:57 → SUATTDRO 17:08 → 2S 17:08